=== PATIENT | male | born 2000 | race Caucasian/White ===

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

== ENCOUNTER 2021-09-13 11:51 | Emergency (ER) | payer BC ==
[2021-09-13 12:18] LABS: Urine Blood 3+ (Negative); Urine Glucose Negative (Negative); Urine Protein Trace (Negative); Urine Specific Gravity >=1.030 (1.005-1.030)
[2021-09-13 12:35] LABS: Absolute Lymphocytes (CBC) 3.2 K/uL (0.7-4.9); Basophils % 0.7 % (0-1.3); Hematocrit 42.6 % (39.6-49.0); Lymphocytes % 30.5 % (15.3-44.8); MPV 8.3 fL (7.6-11.3); RBC Red Blood Cell Count 4.69 M/uL (4.33-5.43)
[2021-09-13] MEDS ORDERED: NA CHLORIDE 0.9% 1,000 ML ONE (12:39)
[2021-09-13 12:51] LABS: Potassium 3.8 mmol/L (3.5-5.1)
--- NOTE | 2021-09-13 13:03 | RAD REPORT ---
EXAM DESCRIPTION: CT - Stone Protocol - 09/13/2021 12:39 pm CLINICAL HISTORY: Abdominal pain. Flank pain COMPARISON: None. TECHNIQUE: Computed axial tomography of the abdomen pelvis was obtained without oral or IV contrast. Lack of IV and oral contrast limits evaluation of solid organs, bowel,, appendix and vessels. Berumen l reformatted images were obtained and reviewed. All CT scans are performed using dose optimization technique as appropriate and may include automated exposure control or mA/KV adjustment according to patient size. FINDINGS: A 5 millimeter calcification right kidney. No hydronephrosis. Punctate left renal calculi. No hydronephrosis. A ureteral calculus is not visualized. No bladder calculus. The liver, spleen, pancreas and adrenals appear grossly normal There is no evidence of diverticulitis. IMPRESSION: 5 millimeter calcification right kidney. This probably lies within the right renal pelvi s. A calcified renal arterial aneurysm is probably less likely. Follow up renal ultrasound in 1 year recommended for re-evaluation. Tiny left renal calculi No hydronephrosis
[2021-09-13] MEDS ORDERED: KETOROLAC 30 MG/ML INJ ONE (13:43)
--- NOTE | 2021-09-13 13:51 | EDPHYS ---
Physician Documentation [facility] Name: Ash Goodman Age: 21 yrs Sex: Male : 2000 Arrival Date: 09/13/2021 Time: 11:55 Bed 20 Private MD: ED Physician Michele Quinn HPI: 09/13 13:38 This 21 yrs old Male presents to ER via Ambulatory with complaints of Back kb Pain. 13:38 The patient presents with pain that is acute, with no known mechanism of injury. The kb symptoms are located in the right low back and right mid back. Onset: The symptoms/episode began/occurred 4 day(s) ago. The pain does not radiate. Associated signs and symptoms: The patient has no apparent associated signs or symptoms. The problem was sustained from unknown cause. Modifying factors: The patient symptoms are alleviated by nothing, the patient symptoms are aggravated by any movement. Severity of symptoms: At their worst the symptoms were moderate, in the emergency department the symptoms are unchanged. The patient has not experienced similar symptoms in the past. The patient has not recently seen a physician. Historical: - Allergies: 12:00 No Known Allergies; tw2 - Home Meds: 12:00 None [Active]; tw2 - PMHx: 12:00 None; tw2 - PSHx: 12:00 None; tw2 - Immunization history:: Client reports having NOT received the Covid vaccine. - Social history:: Smoking status: Reported history of juuling and/or vaping. Smoking status: Reported history of juuling and/or vaping. Patient uses street drugs, CBD vaping everyday. ROS: 13:21 Constitutional: Negative for fever, chills, and weight loss. kb 13:21 Back: Positive for flank pain, on the right. 13:21 All other systems are negative. Exam: 13:22 Constitutional: This is a well developed, well nourished patient who is awake, alert, kb and in no acute distress. Head/Face: Normocephalic, atraumatic. ENT: Moist Mucous membranes Cardiovascular: Regular rate and rhythm with a normal S1 and S2. No gallops, murmurs, or rubs. No pulse deficits. Respiratory: Respirations even and unlabored. No increased work of breathing, no retractions or nasal flaring. Abdomen/GI: Soft, non-tender. No distention Skin: Warm, dry with normal turgor. Normal color. MS/ Extremity: Pulses equal, no cyanosis. Neurovascular intact. Full, normal range of motion. Neuro: Awake and alert, GCS 15, oriented to person, place, time, and situation. Moves all extremities. Normal gait. Psych: Awake, alert, with orientation to person, place and time. Behavior, mood, and affect are within normal limits. 13:22 Back: pain, that is mild, of the right low back and right mid back. Vital Signs: 11:57 BP 127 / 81; Pulse 94; Resp 17; Temp 97.6(TE); Pulse Ox 100% on R/A; Weight 65.77 kg tw2 (R); Height 5 ft. 10 in. (177.80 cm); Pain 9/10; 12:30 BP 126 / 74; Pulse 78; Resp 18; Temp 97.9; Pulse Ox 100% ; sl2 13:30 BP 124 / 78; Pulse 82; Resp 18; Temp 97.8; Pulse Ox 100% ; sl2 11:57 Body Mass Index 20.81 (65.77 kg, 177.80 cm) tw2 MDM: 12:33 Patient medically screened. kb 13:20 Data reviewed: vital signs, nurses notes. Data interpreted: Pulse oximetry: on room air kb is 100 %. Interpretation: normal. Counseling: I had a detailed discussion with the patient and/or guardian regarding: the historical points, exam findings, and any diagnostic results supporting the discharge/admit diagnosis, lab results, radiology results, the need for outpatient follow up, a family practitioner, to return to the emergency department if symptoms worsen or persist or if there are any questions or concerns that arise at home. 13:50 Response to treatment: the patient's symptoms have resolved after treatment. kb 09/13 12:15 Order name: CBC with Diff; Complete Time: 12:38 kb 09/13 12:15 Order name: Basic Metabolic Panel; Complete Time: 12:54 kb 09/13 12:15 Order name: CPK; Complete Time: 12:54 kb 09/13 12:16 Order name: CT Stone Protocol; Complete Time: 13:03 kb 09/13 12:17 Order name: Urine Dipstick-Ancillary; Complete Time: 12:22 EDMS 09/13 12:15 Order name: IV Start; Complete Time: 12:28 kb 09/13 12:15 Order name: Urine Dipstick-Ancillary (obtain specimen); Complete Time: 12:17 kb Administered Medications: 12:43 Drug: NS 0.9% 1000 ml Route: IV; Rate: 1000 ml; Site: right antecubital; sl2 13:48 Follow up: Response: No adverse reaction; IV Status: Completed infusion; IV Intake: sl2 1000ml 13:40 Drug: Ketorolac 15 mg Route: IVP; Site: right antecubital; sl2 13:55 Follow up: Response: No adverse reaction; Pain is decreased sl2 Disposition Summary: 09/13/21 13:51 Discharge Ordered Location: Home kb Condition: Stable kb Diagnosis - Right flank pain kb - Hematuria, unspecified kb Followup: kb - With: Emergency Department - When: As needed - Reason: Worsening of condition Followup: kb - With: Private Physician - When: 2 - 3 days - Reason: Recheck today's complaints, Continuance of care, Re-evaluation by your physician Discharge Instructions: - Discharge Summary Sheet kb - Hematuria, Adult kb - Flank Pain, Adult, [id number] kb Forms: - Medication Reconciliation Form kb - Thank You Letter kb - Antibiotic Education kb - Prescription Opioid Use kb - Work release form eb - Family Work Release eb Prescriptions: - Diclofenac Sodium 75 mg Oral tablet,delayed release (DR/EC) - take 1 tablet by ORAL route 2 times per day As needed; 30 tablet; Refills: 0, kb Product Selection Permitted Addendum: 09/15/2021 08:36 Co-signature as Attending Physician, Michele Quinn MD I agree with the assessment and s p3 plan of care. Signatures: Dispatcher [employer] [facility] Ludivina Norton, CANE SPLICER-C CANE SPLICER-Jelly Hatch, RN RN tw2 Michele Quinn MD MD sp3 Coby Howell RN RN sl2
--- NOTE | 2021-09-13 13:51 | ER ---
Nurse's Notes [facility] Name: Ash Goodman Age: 21 yrs Sex: Male : 2000 Arrival Date: 09/13/2021 Time: 11:55 Bed 20 Private MD: Diagnosis: Right flank pain;Hematuria, unspecified Presentation: 09/13 11:57 Chief complaint: Patient states: i am having this sharp my pain in my back on the lower tw2 RIGHT side. it started . i work at a [employer] and work. it feels like internal like its my kidneys. it switches back and form from sharp to throbbing. Coronavirus screen: At this time, the client does not indicate any symptoms associated with coronavirus-19. Ebola Screen: Patient denies travel to an Ebola-affected area in the 21 days before illness onset. Initial Sepsis Screen: Does the patient meet any 2 criteria? No. Patient's initial sepsis screen is negative. Does the patient have a suspected source of infection? No. Patient's initial sepsis screen is negative. Risk Assessment: Do you want to hurt yourself or someone else? Patient reports no desire to harm self or others. Onset of symptoms was September 13, 2021. 11:57 Method Of Arrival: Ambulatory tw2 11:57 Acuity: MANDA 3 tw2 Triage Assessment: 12:02 General: Appears in no apparent distress. slender, well groomed, Behavior is calm, tw2 cooperative, appropriate for age. Pain: Complains of pain in right mid back and right low back. : Reports pain in right flank(s). Musculoskeletal: Range of motion: intact in all extremities. Historical: - Allergies: 12:00 No Known Allergies; tw2 - Home Meds: 12:00 None [Active]; tw2 - PMHx: 12:00 None; tw2 - PSHx: 12:00 None; tw2 - Immunization history:: Client reports having NOT received the Covid vaccine. - Social history:: Smoking status: Reported history of juuling and/or vaping. Smoking status: Reported history of juuling and/or vaping. Patient uses street drugs, CBD vaping everyday. Screenin:02 Abuse screen: Denies threats or abuse. Nutritional screening: No deficits noted. tw2 Tuberculosis screening: No symptoms or risk factors identified. Fall Risk None identified. Assessment: 12:03 Reassessment: pt given urine specimen cup for sample collection at this time. pt tw2 instructed where to place specimen when finished and to return to the ER main lobby waiting area once he finishes with urine sample collection. 12:04 Neuro: Level of Consciousness is awake, alert, obeys commands, Oriented to person, tw2 place, time, situation. 13:55 Pain: Denies pain. sl2 Vital Signs: 11:57 BP 127 / 81; Pulse 94; Resp 17; Temp 97.6(TE); Pulse Ox 100% on R/A; Weight 65.77 kg tw2 (R); Height 5 ft. 10 in. (177.80 cm); Pain 9/10; 12:30 BP 126 / 74; Pulse 78; Resp 18; Temp 97.9; Pulse Ox 100% ; sl2 13:30 BP 124 / 78; Pulse 82; Resp 18; Temp 97.8; Pulse Ox 100% ; sl2 11:57 Body Mass Index 20.81 (65.77 kg, 177.80 cm) tw2 ED Course: 11:55 Patient arrived in ED. mr 12:00 Triage completed. tw2 12:02 Arm band placed on. tw2 12:02 Patient has correct armband on for positive identification. Placed in gown. Bed in low sl2 position. Call light in reach. Side rails up X2. Adult w/ patient. 12:15 Ludivina Norton FNP-C is PHCP. kb 12:15 Michele Quinn MD is Attending Physician. kb 12:25 Inserted saline lock: 20 gauge in right antecubital area, using aseptic technique. tw2 ,using aseptic technique. pt became diaphoretic and nauseous in triage room after IV. pt given cool rag for face and instructed to take mask off face and take slow deep breaths. pts significant other states he normally passes out after this kind of stuff with needles. Blood collected. 12:28 CBC with Diff Sent. tw2 12:28 CPK Sent. tw2 12:28 Basic Metabolic Panel Sent. tw2 12:38 Coby Howell, YVETTE is Primary Nurse. sl2 12:39 CT Stone Protocol In Process Unspecified. EDMS 13:57 No provider procedures requiring assistance completed. IV discontinued, intact, sl2 bleeding controlled, No redness/swelling at site. Pressure dressing applied. Administered Medications: 12:43 Drug: NS 0.9% 1000 ml Route: IV; Rate: 1000 ml; Site: right antecubital; sl2 13:48 Follow up: Response: No adverse reaction; IV Status: Completed infusion; IV Intake: sl2 1000ml 13:40 Drug: Ketorolac 15 mg Route: IVP; Site: right antecubital; sl2 13:55 Follow up: Response: No adverse reaction; Pain is decreased sl2 Intake: 13:48 IV: 1000ml; Total: 1000ml. sl2 Outcome: 13:51 Discharge ordered by . kb 13:57 Discharged to home ambulatory, with family. sl2 13:57 Condition: stable 13:57 Discharge instructions given to patient, family, Instructed on discharge instructions, follow up and referral plans. no drinking with medication, medication usage, Demonstrated understanding of instructions, follow-up care, medications, Prescriptions given X 1. 14:05 Patient left the ED. sl2 Signatures: Dispatcher [employer] EDKY Ludivina Norton, NAA DAWSON-Brisa Mills mr Jelly Sanders, RN RN tw2 Coby Howell, YVETTE RN sl2 Corrections: (The following items were deleted from the chart) 12:29 12:25 Inserted saline lock: 20 gauge in right antecubital area, using aseptic tw2 technique. Blood collected. tw2 12:34 12:25 Inserted saline lock: 20 gauge in right antecubital area, using aseptic tw2 technique. ,using aseptic technique. pt became diaphoretic and nauseous in triage room after IV. pt given cool rag for face and instructed to take mask off face and take slow deep breaths. Blood collected. tw2 13:57 13:30 BP 124 / 78; Pulse 18bpm; Resp 18bpm; Pulse Ox 100%; Temp 97.8F; sl2 sl2 13:57 12:30 BP 126 / 74; Pulse 78bpm; Resp 18bpm; Pulse Ox 100%; Temp 97.9F; sl2 sl2
[2021-09-13 14:45] VITALS: BP 124/78; TEMP 97.8; O2SAT 100
== END 2021-09-13 14:05 | disposition home or self-care (01) ==
LOC: ER 11:51
DX: R10.9 Unspecified abdominal pain (principal); R31.9 Hematuria, unspecified
CPT/HCPCS: 96361; 85025; 80048; 36415; 82550; 81003; 76377; 74176; 96374; 99284; J7030

== ENCOUNTER 2021-11-10 23:40 | Emergency (ER) | payer BC ==
--- NOTE | 2021-11-11 02:07 | EDPHYS ---
Physician Documentation [facility] Name: Ash Goodman Age: 21 yrs Sex: Male : 2000 Arrival Date: 11/10/2021 Time: 23:45 Bed 9 Private MD: ED Physician Rico Scott HPI: 11/11 01:58 This 21 yrs old Male presents to ER via Ambulatory with complaints of Back Pain. [facility] 01:58 The patient presents with pain that is acute. Onset: The symptoms/episode jmm began/occurred 1 month(s) ago. The pain radiates to the buttocks. Associated signs and symptoms: Pertinent negatives: fever, incontinence, nausea, numbness, tingling, urinary retention, vomiting, weakness. Modifying factors: The patient symptoms are alleviated by nothing, the patient symptoms are aggravated by any movement. This is a 21 year old male with no known chronic medical conditions that presents to the ED with complaints of progressively worsening back pain after bending 1 month ago. Patient states today the pain intensified with radiation into the right buttock. Denies bowel or bladder issues. . Historical: - Allergies: 00:59 No Known Allergies; tw5 - Home Meds: 00:59 None [Active]; tw5 - PMHx: 00:59 Kidney stone; tw - PSHx: 00:59 None; tw5 - Immunization history:: Flu vaccine is not up to date. - Social history:: Smoking status: Reported history of juuling and/or vaping. ROS: 01:58 Constitutional: Negative for fever, chills, and weight loss, Cardiovascular: Negative jm for chest pain, palpitations, and edema, Respiratory: Negative for shortness of breath, cough, wheezing, and pleuritic chest pain. 01:58 Back: Positive for pain with movement. 01:58 All other systems are negative. Exam: 01:58 Constitutional: This is a well developed, well nourished patient who is awake, alert, jmm and in no acute distress. Head/Face: atraumatic. Eyes: EOMI, no conjunctival erythema appreciated ENT: Moist Mucus Membranes Neck: Trachea midline, Supple Chest/axilla: Normal chest wall appearance and motion. Cardiovascular: Regular rate and rhythm. No edema appreciated Respiratory: Normal respirations, no respiratory distress appreciated Abdomen/GI: Non distended, soft 01:58 Back: pain, that is mild, of the right low back. 01:58 Musculoskeletal/extremity: ROM: intact in all extremities. 01:58 Skin: Appearance: Color: normal in color. 01:58 Neuro: Orientation: is normal, Mentation: is normal, Memory: is normal. 01:58 Neuro: sensation intact, extensor hallucis longus intact. 01:58 Psych: Behavior/mood is pleasant, cooperative. Vital Signs: 00:57 BP 141 / 95; Pulse 61; Resp 20; Temp 97.8(TE); Pulse Ox 100% on R/A; Weight 72.57 kg; tw5 Height 5 ft. 10 in. (177.80 cm); Pain 9/10; 02:00 BP 125 / 71; Pulse 87; Resp 18; Pulse Ox 97% ; mk 03:00 BP 124 / 81; Pulse 87; Resp 18; Temp 98.5; Pulse Ox 98% on R/A; mk 00:57 Body Mass Index 22.96 (72.57 kg, 177.80 cm) tw5 [place] Coma Score: 02:00 Eye Response: spontaneous(4). Verbal Response: oriented(5). Motor Response: obeys mk commands(6). Total: 15. 03:05 Eye Response: spontaneous(4). Verbal Response: oriented(5). Motor Response: obeys mk commands(6). Total: 15. MDM: 01:57 Patient medically screened. [facility] 01:58 Data reviewed: vital signs, nurses notes. Counseling: I had a detailed discussion with [facility] the patient and/or guardian regarding: the historical points, exam findings, and any diagnostic results supporting the discharge/admit diagnosis, the need for outpatient follow up, to return to the emergency department if symptoms worsen or persist or if there are any questions or concerns that arise at home. ED course: Patient withPatient advised of the need to follow-up with spine surgery for further evaluation. Was given strict return precautions. I do not currently suspect cord compression or cauda equina. 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 Patient most likely has sciatica.. Administered Medications: 00:40 Drug: Ketorolac 30 mg Route: IM; Site: right deltoid; 00:40 Drug: Decadron (dexamethasone) 10 mg Route: IM; Site: right gluteus; mk Disposition: 05:21 Co-signature as Attending Physician, Rico Scott MD. mh7 Disposition Summary: 11/11/21 02:06 Discharge Ordered Location: Home [facility] Condition: Stable jmm Diagnosis - Sciatica, right side jmm Followup: [facility] - With: Private Physician - When: As needed - Reason: Recheck today's complaints, Continuance of care, Re-evaluation by your physician Discharge Instructions: - Discharge Summary Sheet [facility] - Sciatica [facility] Forms: - Medication Reconciliation Form [facility] - Thank You Letter [facility] - Antibiotic Education [facility] - Prescription Opioid Use [facility] - Work release form cs9 Prescriptions: - Ibuprofen 800 mg Oral Tablet - take 1 tablet by ORAL route every 12 hours As needed take with food; 20 tablet; [facility] Refills: 0, Product Selection Permitted - Zanaflex 4 mg Oral Tablet - take 1 tablet by ORAL route every 8 hours As needed; 20 tablet; Refills: 0, [facility] Product Selection Permitted Signatures: Dispatcher [employer] EDClive Samaniego PA PA jmm Holmes, Maurice, MD MD mh7 Yi Costa 5 Eleanor Stephenson RN RN mk Corrections: (The following items were deleted from the chart) 01:00 00:59 PMHx: None; tw5
--- NOTE | 2021-11-11 02:07 | ER ---
Nurse's Notes [facility] Name: Ash Goodman Age: 21 yrs Sex: Male : 2000 Arrival Date: 11/10/2021 Time: 23:45 Bed 9 Private MD: Diagnosis: Sciatica, right side Presentation: 11/11 00:57 Chief complaint: Patient states: "It started a month ago, I thought it was a pulled tw5 muscle, and it has only gotten worse. I cannot bend down. I got out of bed today and I went to stand up and I fell right to ground. I just need to figure out what is wrong with me.". Coronavirus screen: Vaccine status: Patient reports being unvaccinated. Ebola Screen: Patient negative for fever greater than or equal to 101.5 degrees Fahrenheit, and additional compatible Ebola Virus Disease symptoms Patient denies exposure to infectious person. Patient denies travel to an Ebola-affected area in the 21 days before illness onset. Initial Sepsis Screen: Does the patient meet any 2 criteria? No. Patient's initial sepsis screen is negative. Does the patient have a suspected source of infection? No. Patient's initial sepsis screen is negative. Risk Assessment: Do you want to hurt yourself or someone else? Patient reports no desire to harm self or others. Onset of symptoms is unknown. 00:57 Method Of Arrival: Ambulatory tw5 00:57 Acuity: MANDA 4 tw5 Triage Assessment: 00:59 General: Appears in no apparent distress. Behavior is calm, cooperative, appropriate tw5 for age. Pain: Pain currently is 9 out of 10 on a pain scale. Historical: - Allergies: 00:59 No Known Allergies; tw5 - Home Meds: 00:59 None [Active]; tw5 - PMHx: 00:59 Kidney stone; tw5 - PSHx: 00:59 None; tw5 - Immunization history:: Flu vaccine is not up to date. - Social history:: Smoking status: Reported history of juuling and/or vaping. Screenin:00 Abuse screen: Denies threats or abuse. Denies injuries from another. Nutritional tw5 screening: No deficits noted. Tuberculosis screening: No symptoms or risk factors identified. Fall Risk Fall in past 12 months (25 points). Assessment: 02:05 General: Appears in no apparent distress. comfortable. Pain: Complains of pain in mk pelvis 'beginning to radiate to the L leg' Pain currently is 8 out of 10 on a pain scale. Quality of pain is described as sharp, shooting, Pain began gradually. Neuro: Level of Consciousness is awake, alert, obeys commands, Oriented to person, place, time, situation, Shredder Operator are equal bilaterally Gait is steady, Speech is normal, Facial symmetry appears normal. Cardiovascular: Heart tones S1 S2 Capillary refill < 3 seconds fingers toes Pulses are 2+ in right radial artery, right dorsalis pedis artery, left radial artery and left dorsalis pedis artery Rhythm is regular. Respiratory: Airway is patent Trachea midline Respiratory effort is even, unlabored, Respiratory pattern is regular, symmetrical, Breath sounds are clear bilaterally. GI: Bowel sounds present X 4 quads. : No signs and/or symptoms were reported regarding the genitourinary system. Derm: Skin is intact, is healthy with good turgor, Skin is dry, Skin temperature is warm. Musculoskeletal: Circulation, motion, and sensation intact. Capillary refill < 3 seconds, Range of motion: intact in all extremities. 03:12 Reassessment: No changes from previously documented assessment. Patient and/or family mk updated on plan of care and expected duration. Pain level reassessed. Patient is alert, oriented x 3, equal unlabored respirations, skin warm/dry/pink. Pain: Complains of pain in pelvis Pain radiates to left leg Pain currently is 7 out of 10 on a pain scale. Quality of pain is described as sharp, shooting. Vital Signs: 00:57 BP 141 / 95; Pulse 61; Resp 20; Temp 97.8(TE); Pulse Ox 100% on R/A; Weight 72.57 kg; tw5 Height 5 ft. 10 in. (177.80 cm); Pain 9/10; 02:00 BP 125 / 71; Pulse 87; Resp 18; Pulse Ox 97% ; mk 03:00 BP 124 / 81; Pulse 87; Resp 18; Temp 98.5; Pulse Ox 98% on R/A; mk 00:57 Body Mass Index 22.96 (72.57 kg, 177.80 cm) tw5 [place] Coma Score: 02:00 Eye Response: spontaneous(4). Verbal Response: oriented(5). Motor Response: obeys commands(6). Total: 15. 03:05 Eye Response: spontaneous(4). Verbal Response: oriented(5). Motor Response: obeys commands(6). Total: 15. ED Course: 11/10 23:45 Patient arrived in ED. ag3 11/11 00:59 Triage completed. tw5 00:59 Arm band placed on left wrist. tw5 01:41 Clive Myers PA is PHCP. [facility] 01:41 Rico Scott MD is Attending Physician. [facility] 02:00 Patient has correct armband on for positive identification. Allergy band placed. Bed in mk low position. Call light in reach. Side rails up X 1. 02:16 Eleanor Stephenson, YVETTE is Primary Nurse. 03:22 No provider procedures requiring assistance completed. Patient did not have IV access mk during this emergency room visit. Administered Medications: 00:40 Drug: Ketorolac 30 mg Route: IM; Site: right deltoid; 00:40 Drug: Decadron (dexamethasone) 10 mg Route: IM; Site: right gluteus; Outcome: 02:06 Discharge ordered by . jenni 03:22 Discharged to home 03:22 Condition: good 03:22 Discharge instructions given to patient, significant other. 03:23 Patient left the ED. Signatures: Clive Myers PA PA jmm Gomez, Alice ag3 Yi Costa Eleanor Stephenson RN RN mk Corrections: (The following items were deleted from the chart) 01:00 00:59 PMHx: None; tw tw 02:58 02:40 Ketorolac 30 mg IM in right gluteus [facility] : 02:00 BP 124 / 81; Pulse 87bpm; Resp 18bpm; Pulse Ox 98% RA; Temp 98.5F; [facility] : 02:00 GCS: 15, [facility]
[2021-11-11] MEDS ORDERED: dexAMETHasone 10 MG/ML VIAL ONE (02:36)
[2021-11-11] MEDS ORDERED: KETOROLAC 30 MG/ML INJ ONE (02:36)
[2021-11-11 03:43] VITALS: BP 124/81; TEMP 98.5; O2SAT 98
== END 2021-11-11 03:23 | disposition home or self-care (01) ==
LOC: ER 23:40
DX: M54.31 Sciatica, right side (principal)
CPT/HCPCS: 96372; 99283; J1100

== ENCOUNTER 2022-04-22 16:48 | Emergency (ER) | payer BC ==
[2022-04-22 17:12] LABS: Urine Blood Negative (Negative); Urine Glucose Negative (Negative); Urine Protein Negative (Negative); Urine Specific Gravity >=1.030 (1.005-1.030); Urine pH 5.5 (5.0-7.0)
[2022-04-22 17:41] LABS: Urine Bacteria <20 /HPF (NONE SEEN); Urine RBC <5 /HPF (NONE SEEN)
--- NOTE | 2022-04-22 18:09 | ER ---
Nurse's Notes [facility] Name: Ash Goodman Age: 22 yrs Sex: Male : 2000 Arrival Date: 04/22/2022 Time: 16:49 Bed Waiting Private MD: Amari Lagos T Diagnosis: Urinary frequency Presentation: 04/22 16:55 Chief complaint: Patient states: "I am having some bladder discomfort and I feel like I aa5 have to pee all the time but I'm not urinating like I should". Reports hx of kidney stones. Coronavirus screen: At this time, the client does not indicate any symptoms associated with coronavirus-19. Ebola Screen: No symptoms or risks identified at this time. Initial Sepsis Screen: Does the patient meet any 2 criteria? No. Patient's initial sepsis screen is negative. Does the patient have a suspected source of infection? No. Patient's initial sepsis screen is negative. Risk Assessment: Do you want to hurt yourself or someone else? Patient reports no desire to harm self or others. Onset of symptoms was April 2022. 16:55 Acuity: MANDA 3 aa5 16:55 Method Of Arrival: Ambulatory aa5 Historical: - Allergies: 16:57 No Known Allergies; aa5 - PMHx: 16:57 Kidney stone; aa5 - Immunization history:: Adult Immunizations unknown. - Social history:: Smoking status: Reported history of juuling and/or vaping. Assessment: 18:24 Reassessment: Patient is alert, oriented x 3, equal unlabored respirations, skin aa5 warm/dry/pink. Vital Signs: 16:55 BP 158 / 97; Pulse 98; Resp 18 S; Temp 98.3(O); Pulse Ox 100% on R/A; Weight 68.04 kg aa5 (R); Height 5 ft. 10 in. (177.80 cm) (R); 16:55 Body Mass Index 21.52 (68.04 kg, 177.80 cm) aa5 ED Course: 16:49 Patient arrived in ED. as 16:49 Amari Lagos MD is Private Physician. as 16:50 Ludivina Norton [facility]-C [facility]. kb 16:50 Juve Davis DO is Attending Physician. kb 16:55 Arm band placed on. aa5 16:57 Triage completed. aa5 18:25 No provider procedures requiring assistance completed. Patient did not have IV access aa5 during this emergency room visit. Administered Medications: No medications were administered Outcome: 18:08 Discharge ordered by . estefany 18:24 Discharged to home ambulatory, with significant other. aa5 18:24 Condition: stable 18:24 Discharge instructions given to patient, Instructed on discharge instructions, follow up and referral plans. Demonstrated understanding of instructions, follow-up care. 18:25 Patient left the ED. aa5 Signatures: Ludivina Norton, METAL ANNEALER-C METAL ANNEALER-Julianna Tyler as Mulu Howe, RN RN aa5 Corrections: (The following items were deleted from the chart) 16:59 16:55 BP 158 / 97; Pulse 98bpm; Resp 18bpm; Spontaneous; Pulse Ox 100% RA; aa5 aa5
--- NOTE | 2022-04-22 18:09 | EDPHYS ---
Physician Documentation [facility] Name: Ash Goodman Age: 22 yrs Sex: Male : 2000 Arrival Date: 04/22/2022 Time: 16:49 Bed Waiting Private MD: Amari Lagos T ED Physician Juve Davis HPI: 04/22 18:04 This 22 yrs old Male presents to ER via Ambulatory with complaints of Pelvic Pain. kb 18:05 The patient has not recently seen a physician. kb 18:05 The patient presents with urinary symptoms, urinary frequency, suprapubic discomfort. kb 18:07 Onset: The symptoms/episode began/occurred last week. Modifying factors: The symptoms kb are alleviated by nothing, the symptoms are aggravated by nothing. Associated signs and symptoms: The patient has no apparent associated signs or symptoms. Severity of symptoms: At their worst the symptoms were mild, moderate, in the emergency department the symptoms are unchanged. The patient has not experienced similar symptoms in the past. Historical: - Allergies: 16:57 No Known Allergies; aa5 - PMHx: 16:57 Kidney stone; aa5 - Immunization history:: Adult Immunizations unknown. - Social history:: Smoking status: Reported history of juuling and/or vaping. ROS: 18:03 Constitutional: Negative for fever, chills, and weight loss. kb 18:03 Abdomen/GI: Positive for of the suprapubic area, "discomfort, not pain". 18:03 : Positive for urinary frequency. 18:03 All other systems are negative. Exam: 18:03 Constitutional: This is a well developed, well nourished patient who is awake, alert, kb and in no acute distress. Head/Face: Normocephalic, atraumatic. ENT: Moist Mucous membranes Respiratory: Respirations even and unlabored. No increased work of breathing. Talking in full sentences Abdomen/GI: Soft, non-tender. No distention Back: No spinal tenderness. No costovertebral tenderness. Full range of motion. Skin: Warm, dry with normal turgor. Normal color. MS/ Extremity: Pulses equal, no cyanosis. Neurovascular intact. Full, normal range of motion. Neuro: Awake and alert, GCS 15, oriented to person, place, time, and situation. Moves all extremities. Normal gait. Psych: Awake, alert, with orientation to person, place and time. Behavior, mood, and affect are within normal limits. Vital Signs: 16:55 BP 158 / 97; Pulse 98; Resp 18 S; Temp 98.3(O); Pulse Ox 100% on R/A; Weight 68.04 kg aa5 (R); Height 5 ft. 10 in. (177.80 cm) (R); 16:55 Body Mass Index 21.52 (68.04 kg, 177.80 cm) aa5 MDM: 16:53 Patient medically screened. kb 18:04 Data reviewed: vital signs, nurses notes. Data interpreted: Pulse oximetry: on room air kb is 100 %. Interpretation: normal. Counseling: I had a detailed discussion with the patient and/or guardian regarding: the historical points, exam findings, and any diagnostic results supporting the discharge/admit diagnosis, lab results, the need for outpatient follow up, a family practitioner, to return to the emergency department if symptoms worsen or persist or if there are any questions or concerns that arise at home. 04/22 16:59 Order name: Urine Microscopic Only; Complete Time: 17:55 kb 04/22 17:12 Order name: Urine Dipstick-Ancillary; Complete Time: 17:17 EDNH 04/22 16:59 Order name: Urine Dipstick-Ancillary (obtain specimen); Complete Time: 17:13 kb 04/22 17:44 Order name: Urine Culture EDNH Administered Medications: No medications were administered Disposition: 19:55 Co-signature as Attending Physician, Juve WARD was immediately available on-site ms3 in the Emergency Department for consultation in the care of the patient.. Disposition Summary: 04/22/22 18:08 Discharge Ordered Location: Home kb Condition: Stable kb Diagnosis - Urinary frequency kb Followup: kb - With: Emergency Department - When: As needed - Reason: Worsening of condition Followup: kb - With: Private Physician - When: 2 - 3 days - Reason: Recheck today's complaints, Continuance of care, Re-evaluation by your physician Discharge Instructions: - Discharge Summary Sheet kb - Urinary Frequency, Adult kb Forms: - Medication Reconciliation Form kb - Thank You Letter kb - Antibiotic Education kb - Prescription Opioid Use kb Signatures: Dispatcher [employer] EDMS Ludivina Norton FNP-C FNP-Mulu Horner, RN RN aa5 Juve Davis DO DO ms3 Corrections: (The following items were deleted from the chart) 18:05 18:03 : Positive for burning with urination, kb kb
[2022-04-22 18:41] VITALS: BP 158/97; TEMP 98.3; O2SAT 100
== END 2022-04-22 18:25 | disposition home or self-care (01) ==
LOC: ER 16:48
DX: R35.0 Frequency of micturition (principal); R10.2 Pelvic and perineal pain; Z87.442 Personal history of urinary calculi
CPT/HCPCS: 81003; 81015; 87086; 87088; 99281

== ENCOUNTER 2022-05-10 10:24 | Emergency (ER) | payer BC ==
--- NOTE | 2022-05-10 12:18 | ER ---
Nurse's Notes [facility] Name: Ash Goodman Age: 22 yrs Sex: Male : 2000 Arrival Date: 05/10/2022 Time: 10:24 Bed 9 Private MD: Diagnosis: Coronavirus infection, unspecified Presentation: 05/10 10:35 Chief complaint: Patient states: pt reports sore throat x 1 week. Coronavirus screen: watts Vaccine status: Patient reports being unvaccinated. Ebola Screen: Patient denies travel to an Ebola-affected area in the 21 days before illness onset. Initial Sepsis Screen: Does the patient meet any 2 criteria? No. Patient's initial sepsis screen is negative. Does the patient have a suspected source of infection? No. Patient's initial sepsis screen is negative. Risk Assessment: Do you want to hurt yourself or someone else? Patient reports no desire to harm self or others. Onset of symptoms was May 02, 2022. 10:35 Method Of Arrival: Ambulatory watts 10:35 Acuity: MANDA 4 watts Triage Assessment: 10:36 General: Appears in no apparent distress. Behavior is calm, cooperative. Pain: watts Complains of pain in throat. Historical: - Allergies: 10:36 No Known Allergies; watts - Home Meds: 10:36 None [Active]; watts - PMHx: 10:36 Kidney stone; watts - PSHx: 10:36 None; watts - Immunization history:: Adult Immunizations up to date. - Social history:: Smoking status: Reported history of juuling and/or vaping. Screenin:00 Nutritional screening: No deficits noted. Tuberculosis screening: No symptoms or risk iw factors identified. 12:35 Abuse screen: Denies threats or abuse. Denies injuries from another. Fall Risk None iw identified. Assessment: 11:20 General: Appears in no apparent distress. Behavior is calm, cooperative. Pain:. Neuro: iw Level of Consciousness is awake, alert, obeys commands, Oriented to person, place, time, situation, Moves all extremities. Full function. Respiratory: Airway is patent Respiratory effort is even, unlabored, Breath sounds are clear bilaterally. EENT: Throat is reddened bilaterally. Vital Signs: 10:35 BP 138 / 87; Pulse 86; Resp 17; Temp 98.5(O); Pulse Ox 99% ; Weight 68.04 kg; Height 5 watts ft. 10 in. (177.80 cm); 10:35 Body Mass Index 21.52 (68.04 kg, 177.80 cm) watts ED Course: 10:24 Patient arrived in ED. as 10:31 Clive Myers PA is PHCP. jenni 10:31 Franklin Cedeño MD is Attending Physician. m 10:36 Triage completed. watts 10:36 Arm band placed on. watts 10:44 Kathryn Jeffery, RN is Primary Nurse. iw 10:49 COVID swab sent to lab. Flu and/or RSV swab sent to lab. Strep swab sent to lab. jw7 10:50 Influenza Screen (a \\T\\ B) Sent. jw7 10:50 Strep Sent. jw7 10:50 SARS-COV-2 RT PCR (Document "Date of Onset" if Symptomatic) Sent. jw7 11:20 Patient has correct armband on for positive identification. iw 12:37 No provider procedures requiring assistance completed. Patient did not have IV access iw during this emergency room visit. Administered Medications: No medications were administered Medication: 11:20 VIS not applicable for this client. iw Outcome: 12:17 Discharge ordered by . [facility] 12:37 Discharged to home ambulatory, with family. iw 12:37 Condition: good 12:37 Discharge instructions given to patient, Instructed on discharge instructions, follow up and referral plans. Demonstrated understanding of instructions, follow-up care. 12:38 Patient left the ED. iw Signatures: Clive Myers PA PA jmm Martinez, Amelia as Kathryn Jeffery RN RN Mendy-StagerNeha RN RN ha Waits, Jodi jw7
--- NOTE | 2022-05-10 12:18 | EDPHYS ---
Physician Documentation [facility] Name: Ash Goodman Age: 22 yrs Sex: Male : 2000 Arrival Date: 05/10/2022 Time: 10:24 Bed 9 Private MD: ED Physician Franklin Cedeño HPI: 05/10 10:37 This 22 yrs old Male presents to ER via Ambulatory with complaints of Sore Throat. jmm 10:37 The patient presents with sore throat. Onset: The symptoms/episode began/occurred jmm gradually, 8 day(s) ago. Modifying factors: The symptoms are alleviated by nothing, the symptoms are aggravated by nothing. Associated signs and symptoms: Pertinent positives: cough, fever, Pertinent negatives. This is a 22 year old male with a history of kidney stones that presents to the ED with complaints of sore throat and subjective fever beginning approx 8 days ago. Also complains of mild cough, denies shortness of breath, abdominal pain, diarrhea, or vomiting. . Historical: - Allergies: 10:36 No Known Allergies; watts - Home Meds: 10:36 None [Active]; watts - PMHx: 10:36 Kidney stone; watts - PSHx: 10:36 None; watts - Immunization history:: Adult Immunizations up to date. - Social history:: Smoking status: Reported history of juuling and/or vaping. ROS: 10:37 Constitutional: Positive for body aches, fever. jmm 10:37 ENT: Positive for drainage from ear(s), sore throat. 10:37 Respiratory: Positive for cough. 10:37 All other systems are negative. Exam: 10:37 Constitutional: This is a well developed, well nourished patient who is awake, alert, jmm and in no acute distress. Head/Face: atraumatic. Eyes: EOMI, no conjunctival erythema appreciated 10:37 Neck: Trachea midline, Supple Chest/axilla: Normal chest wall appearance and motion. Cardiovascular: Regular rate and rhythm. No edema appreciated Respiratory: Normal respirations, no respiratory distress appreciated Abdomen/GI: Non distended Back: Normal ROM Skin: General appearance color normal MS/ Extremity: Moves all extremities, no obvious deformities appreciated, no edema noted to the lower extremities Neuro: Awake and alert Psych: Behavior is normal, Mood is normal, Patient is cooperative and pleasant 10:37 ENT: Posterior pharynx: erythema, that is mild. Vital Signs: 10:35 BP 138 / 87; Pulse 86; Resp 17; Temp 98.5(O); Pulse Ox 99% ; Weight 68.04 kg; Height 5 watts ft. 10 in. (177.80 cm); 10:35 Body Mass Index 21.52 (68.04 kg, 177.80 cm) watts MDM: 10:46 Patient medically screened. [facility] 12:16 Data reviewed: vital signs, nurses notes. [facility] 12:16 Counseling: I had a detailed discussion with the patient and/or guardian regarding: the [facility] historical points, exam findings, and any diagnostic results supporting the discharge/admit diagnosis, the need for outpatient follow up, to return to the emergency department if symptoms worsen or persist or if there are any questions or concerns that arise at home. ED course: Patient is alert and non toxic in appearance in the ED. No signs of resp distress. Patient advised to follow up with pcp and otherwise given strict return precautions. patient understood and agrees with the plan of care. . 05/10 10:37 Order name: SARS-COV-2 RT PCR (Document "Date of Onset" if Symptomatic); Complete Time: [facility] 12:08 05/10 10:37 Order name: Strep; Complete Time: 12:08 [facility] 05/10 10:37 Order name: Influenza Screen (a \\T\\ B); Complete Time: 12:08 [facility] 05/10 11:15 Order name: Throat Culture EDMS Administered Medications: No medications were administered Disposition: 12:42 Co-signature as Attending Physician, Kathryn Jeffery RN I agree with the assessment and kdr plan of care. Disposition Summary: 05/10/22 12:17 Discharge Ordered Location: Home [facility] Condition: Stable [facility] Diagnosis - Coronavirus infection, unspecified [facility] Followup: [facility] - With: Private Physician - When: 2 - 3 days - Reason: Recheck today's complaints, Continuance of care, Re-evaluation by your physician Discharge Instructions: - Discharge Summary Sheet [facility] - COVID-19 [facility] Forms: - Medication Reconciliation Form [facility] - Thank You Letter [facility] - Antibiotic Education jm - Prescription Opioid Use [facility] - Work release form iw Signatures: Dispatcher [employer] EDMS Franklin Cedeño MD MD kdr Mickail Clive, PA PA jmm Neha Wang, YVETTE RN watts
[2022-05-10] MEDS ORDERED: dexAMETHasone 10 MG/ML VIAL ONE (12:36)
[2022-05-10 13:40] VITALS: BP 138/87; TEMP 98.5; O2SAT 99
== END 2022-05-10 12:38 | disposition home or self-care (01) ==
LOC: ER 10:24
DX: J02.9 Acute pharyngitis, unspecified (principal); U07.1 COVID-19
CPT/HCPCS: 87070; 87081; 87804 ×2; U0003; J1100; 99283

== ENCOUNTER 2024-02-22 07:35 | Emergency (ER) | payer BC ==
[2024-02-22 08:18] LABS: Specific Gravity 1.022 (1.005-1.030); Urine Bilirubin NEGATIVE (Negative); Urine Blood 3+ (Negative); Urine Clarity Turbid (Clear); Urine Color Light-Yellow (Yellow); Urine Glucose NEGATIVE (Negative); Urine Ketones NEGATIVE (Negative); Urine Micro Reflex YN NO BILL NO MICROSCOPIC; Urine Nitrite NEGATIVE (Negative); Urine Protein 1+ (Negative); Urine Urobilinogen Normal (Normal); Urine pH 6.5 (5.0-7.0)
[2024-02-22 08:20] LABS: Absolute Eosinophils 0.1 K/uL (0-0.5); Absolute Monocytes 0.5 K/uL (0.1-1.3); Absolute Neutrophil 3.6 K/uL (1.8-8.0); Basophils % 0.7 % (0-1.3); Eosinophils % 0.9 % (0-4.4); Hemoglobin 14.7 g/dL (13.6-17.9); Lymphocytes % 32.4 % (15.3-44.8); MCH 32.8 pg (27.0-35.0); MCV 93.9 fL (80-100); Monocytes % 8.5 % (3.3-12.3); Neutrophils % 57.5 % (41.7-73.7); Nucleated Red Blood Cells % 0.2 % (0-0); Platelets 298 thou/uL (152-406); RBC Red Blood Cell Count 4.47 M/uL (4.33-5.43); Red Cell Distribution Width 12.5 % (12.1-15.2)
--- NOTE | 2024-02-22 08:28 | RAD REPORT ---
EXAM DESCRIPTION: CT - Abdomen Pelvis Wo Contrast - 02/22/2024 8:00 am CLINICAL HISTORY: ABD PAIN COMPARISON: Stone Protocol dated 09/13/2021 TECHNIQUE: Thin cut axial CT imaging of the abdomen and pelvis was performed without IV contrast. Mu ltiplanar reformats were generated and reviewed. All CT scans are performed using dose optimization technique as appropriate and may include automated exposure control or mA/KV adjustment according to patient size. FINDINGS: No suspicious findings in the lung bases. The liver, spleen, adrenal glands, and pancreas show no suspicious findings. Gallbladder and biliary tree are also without suspicious finding. Symmetric renal contour, without suspicious parenchymal findings within limits of noncontrast techniq ue. No evidence of left hydroureteronephrosis. 1-2 mm left lower renal pole calculus, and right ovoid 13 mm renal pelvis calculus. Mild proximal right hydroureter with mild periureteric fat stranding, w ith no other calculi noted distally. Findings are nonspecific and could relate to a recently passed s tone. . No dilated bowel loops or bowel wall thickening. No free air, free fluid or inflammatory stranding. N o hernia, mass or bulky lymphadenopathy. The urinary bladder is decompressed limiting evaluation. No suspicious bony findings. IMPRESSION: Right renal pelvis 13 mm and left renal lower pole 1-2 mm nonobstructing calculi. Mild proximal right hydroureter with mild periureteric fat stranding. Findings are nonspecific and ma y relate to a recently passed stone.
[2024-02-22 08:31] LABS: Anion Gap 7.7 mEq/L (5.0-15.0); Potassium 3.7 mEq/L (3.5-5.1)
--- NOTE | 2024-02-22 08:38 | ER ---
Nurse's Notes [facility] Name: Ash Goodman Age: 23 yrs Sex: Male : 2000 Arrival Date: 02/22/2024 Time: 07:35 Bed 5 Private MD: Diagnosis: Calculus of kidney Presentation: 02/21 07:46 Chief complaint: Patient states: he is having right lower abdominal pain for a few ap3 months, and had "orange urine" this morning and decided to get evaluated today due to his PCP not being able to get him in for a while. Coronavirus screen: At this time, the client does not indicate any symptoms associated with coronavirus-19. Ebola Screen: No symptoms or risks identified at this time. Initial Sepsis Screen: Does the patient meet any 2 criteria? HR > 90 bpm. Does the patient have a suspected source of infection? No. Patient's initial sepsis screen is negative. Risk Assessment: Do you want to hurt yourself or someone else? Patient reports no desire to harm self or others. Onset of symptoms is unknown. 07:46 Method Of Arrival: Ambulatory ap3 07:46 Acuity: MANDA 3 ap3 Triage Assessment: 07:50 General: Appears in no apparent distress. Behavior is calm, cooperative, appropriate ap3 for age. Pain: Complains of pain in right lower quadrant Pain began years ago. Neuro: Level of Consciousness is awake, alert, obeys commands, Oriented to person, place, time, situation. Cardiovascular: Patient's skin is warm and dry. Respiratory: Airway is patent Respiratory effort is even, unlabored. GI: No signs and/or symptoms were reported involving the gastrointestinal system. Historical: - Allergies: 07:49 No Known Allergies; ap3 - Home Meds: 07:49 None [Active]; ap3 - PMHx: 07:49 Kidney stone; ap3 - Immunization history:: Adult Immunizations up to date. - Infectious Disease History:: Denies. - Social history:: Smoking status: Reported history of juuling and/or vaping. Screenin:50 [facility] ED Fall Risk Assessment (Adult) History of falling in the last 3 months, ap3 including since admission No falls in past 3 months (0 pts) Confusion or Disorientation No (0 pts) Intoxicated or Sedated No (0 pts) Impaired Gait No (0 pts) Mobility Assist Device Used No (0 pt) Altered Elimination No (0 pt) Score/Fall Risk Level 0 - 2 = Low Risk Oriented to surroundings, Maintained a safe environment, Educated pt \\T\\ family on fall prevention, incl call for assistance when getting out of bed, Assessed \\T\\ reinforced patient's understanding of fall precautions, Provided non-skid footwear, Hourly rounding (assess needs \\T\\ fall precautionary measures) done, Used ambulatory aids as needed (educated on \\T\\ assisted with), Used gait belt as appropriate. Abuse screen: Denies threats or abuse. Nutritional screening: No deficits noted. Tuberculosis screening: No symptoms or risk factors identified. Assessment: 08:20 General: Appears in no apparent distress. comfortable, Behavior is calm, cooperative, ko1 appropriate for age. Pain: Complains of pain in right lower quadrant. Neuro: No deficits noted. Cardiovascular: No deficits noted. Respiratory: No deficits noted. GI: Bowel sounds present X 4 quads. Abd is soft and non tender X 4 quads. : Reports pain in right lower quadrant(s) in lower back. EENT: No deficits noted. Derm: No deficits noted. Musculoskeletal: No deficits noted. Vital Signs: 07:46 BP 177 / 95; Pulse 92; Resp 17; Temp 98.4; Weight 73.48 kg; Height 5 ft. 9 in. ; ap3 08:33 BP 162 / 91; Pulse 88; Resp 15; Pulse Ox 99% on R/A; ko1 07:46 Body Mass Index 23.92 (73.48 kg, 175.26 cm) ap3 ED Course: 07:37 Patient arrived in ED. im 07:49 Triage completed. ap3 07:50 Jose Juan Craig MD is Attending Physician. ec2 07:51 Arm band placed on right wrist. ap3 07:51 Patient has correct armband on for positive identification. Bed in low position. Call ap3 light in reach. Side rails up X 1. 07:58 CT Abd/Pelvis - Without Contrast In Process Unspecified. EDMS 08:02 UAM Sent. ko1 08:03 Trista Reynoso, YVETTE is Primary Nurse. ko1 08:20 Pulse ox on. NIBP on. Door closed. Noise minimized. Lights dimmed. Warm blanket given. ko1 08:20 PO fluids given. ko1 08:20 No provider procedures requiring assistance completed. Initial lab(s) drawn, by ak, koCamila sent to lab. Urine collected: clean catch specimen, clear. Inserted saline lock: 22 gauge in left antecubital area, using aseptic technique. Blood collected. 08:33 Provided Education on: labs/IV. ko1 08:38 Delroy Payton MD is Referral Physician. ec2 08:38 IV discontinued, intact, bleeding controlled, No redness/swelling at site. Pressure ko1 dressing applied. Administered Medications: No medications were administered Medication: 08:33 VIS not applicable for this client. ko1 Outcome: 08:37 Discharge ordered by . ec2 08:47 Discharged to home ambulatory, ko1 08:47 Condition: stable 08:47 Discharge instructions given to patient, Instructed on discharge instructions, follow up and referral plans. medication usage, Demonstrated understanding of instructions, follow-up care, medications, Prescriptions given X 1, 08:47 Patient left the ED. ko1 Signatures: Dispatcher [employer] Loretta Lee RN RN ap3 Trista Reynoso RN RN ko1 Roslyn Carter Edwin, MD MD ec2
--- NOTE | 2024-02-22 08:38 | EDPHYS ---
Physician Documentation [facility] Name: Ash Goodman Age: 23 yrs Sex: Male : 2000 Arrival Date: 02/22/2024 Time: 07:35 Bed 5 Private MD: ED Physician Jose Juan Craig HPI: 02/21 07:56 This 23 yrs old Male presents to ER via Ambulatory with complaints of Possible Kidney ec2 Stone, Abdominal Pain, Possible blood in urine. 07:56 Patient arrives today for evaluation of abdominal pain. Patient complaining of ec2 right-sided abdominal pain, also with orange-colored urine. Symptoms have been ongoing for several months. Patient reports no nausea or vomiting. Reports he takes Advil for pain.. Historical: - Allergies: 07:49 No Known Allergies; ap3 - Home Meds: 07:49 None [Active]; ap3 - PMHx: 07:49 Kidney stone; ap3 - Immunization history:: Adult Immunizations up to date. - Infectious Disease History:: Denies. - Social history:: Smoking status: Reported history of juuling and/or vaping. ROS: 07:56 Constitutional: as per hpi ec2 Exam: 07:56 Constitutional: GEN: NAD Head: atraumatic Eyes: EOMI Ears: External ears are ec2 normal. CV: regular rate LUNGS: no respiratory distress ABD: non-distended, soft, no guarding, not rigid, negative flank bilaterally, minimal TTP to the right lower quadrant. SKIN: no evidence of rashes MSK: no evidence of trauma NEURO: moves all extremities equally Vital Signs: 07:46 BP 177 / 95; Pulse 92; Resp 17; Temp 98.4; Weight 73.48 kg; Height 5 ft. 9 in. ; ap3 08:33 BP 162 / 91; Pulse 88; Resp 15; Pulse Ox 99% on R/A; ko1 07:46 Body Mass Index 23.92 (73.48 kg, 175.26 cm) ap3 MDM: 07:50 Patient medically screened. ec2 07:56 Data reviewed: vital signs. ED course: Patient arrives today for right-sided abdominal ec2 pain. Examination remarkable for abdominal findings as above. Will obtain urine studies, CT imaging as well as basic lab work. Evaluating for urolithiasis, doubt appendicitis, doubt gallbladder pathology. . 08:37 ED course: Urine shows blood urine, CT imaging shows renal calculus on the right side ec2 and left side nonobstructing. Also has some hydroureter on the right side with a likely recently passed stone. Reassuring CBC. No obstructing stones evident. Will discharge home have follow-up with urology as needed. . 02/21 07:55 Order name: UAM; Complete Time: 08:36 ec2 02/21 07:55 Order name: CBC with Diff; Complete Time: 08:36 ec2 02/21 07:55 Order name: BMP; Complete Time: 08:36 ec2 02/21 07:55 Order name: CT Abd/Pelvis - Without Contrast; Complete Time: 08:36 ec2 Administered Medications: No medications were administered Disposition Summary: 02/22/24 08:37 Discharge Ordered Notes: Location: Home ec2 Condition: Stable ec2 Diagnosis - Calculus of kidney ec2 Followup: ec2 - With: Private Physician - When: - Reason: Re-evaluation by your physician Followup: ec2 - With: Delroy Payton MD - When: - Reason: Recheck today's complaints, Continuance of care Discharge Instructions: - Discharge Summary Sheet ko1 - Kidney Stones ec2 Forms: - Work release form ko1 - Medication Reconciliation Form ec2 - Thank You Letter ec2 - Antibiotic Education ec2 - Prescription Opioid Use ec2 - Patient Portal Instructions ec2 - Leadership Thank You Letter ec2 Prescriptions: - acetaminophen-codeine 300-15 mg Oral tablet - take 1 tablet ORAL route every 8 hours; 10 tablet; Refills: 0, Product ec2 Selection Permitted Signatures: Dispatcher [employer] Loretta Lee RN RN ap3 Jose Juan Craig MD MD ec2
[2024-02-23 05:28] VITALS: BP 162/91; TEMP 98.4; O2SAT 99
== END 2024-02-22 08:47 | disposition home or self-care (01) ==
LOC: ER 07:35
DX: N20.0 Calculus of kidney (principal); Z87.442 Personal history of urinary calculi
CPT/HCPCS: 36415; 74176; 80048; 81001; 85025

== ENCOUNTER 2024-04-03 07:23 | Day surgery (SDC) | payer BC ==
[2024-03-20 11:56] LABS: Absolute Eosinophils 0.1 K/uL (0-0.5); Absolute Lymphocytes (CBC) 2.2 K/uL (0.7-4.9); Absolute Monocytes 0.6 K/uL (0.1-1.3); Basophils % 0.6 % (0-1.3); Eosinophils % 0.9 % (0-4.4); Hematocrit 47.3 % (39.6-49.0); Hemoglobin 16.2 g/dL (13.6-17.9); Lymphocytes % 32.1 % (15.3-44.8); MCH 32.2 pg (27.0-35.0); MCHC 34.2 g/dL (32.0-36.0); MCV 94.3 fL (80-100); MPV 8.5 fL (7.6-11.3); Monocytes % 8.8 % (3.3-12.3); Neutrophils % 57.6 % (41.7-73.7); Nucleated Red Blood Cells % 0.1 % (0-0); Platelets 353 thou/uL (152-406); RBC Red Blood Cell Count 5.02 M/uL (4.33-5.43); Red Cell Distribution Width 12.3 % (12.1-15.2)
[2024-03-20 12:37] LABS: Anion Gap 8.9 mEq/L (5.0-15.0); Potassium 3.9 mEq/L (3.5-5.1)
--- NOTE | 2024-03-23 14:47 | EKG ---
Test Date: 2024-03-20 Test Time: 11:37:22 Process Improvement Analyst: DARRON MEASUREMENT RESULTS: Intervals: Rate: 58 ND: 126 QRSD: 100 QT: 424 QTc: 416 [place]: P: 78 ND: 126 QRS: 78 T: 73 INTERPRETIVE STATEMENTS: Sinus bradycardia Otherwise normal ECG No previous ECG available for comparison Electronically Signed On 03-23-24 14:39:50 CDT by Alexey Balderas
[2024-04-03] MEDS: Ringers Lactate 1,000 ML IV ONE (07:54)
[2024-04-03] MEDS ORDERED: propofoL 200 MG/20 ML VIAL IV ONE (08:54)
[2024-04-03] MEDS ORDERED: LIDOCAINE 1% MPF 5 ML VIAL ONE (08:54)
[2024-04-03] MEDS ORDERED: MIDAZOLAM HCL 2 MG/2 ML INJ ONE (08:55)
[2024-04-03] MEDS ORDERED: FENTANYL CITR 100 MCG/2 ML ONE (08:55)
[2024-04-03] MEDS: CEFAZOLIN SODIUM 2 GM/VIAL ONE (09:20)
[2024-04-03] MEDS ORDERED: dexAMETHasone 4 MG/ML VIAL ONE (09:31)
[2024-04-03] MEDS ORDERED: KETOROLAC 30 MG/ML INJ ONE (09:32)
[2024-04-03] MEDS ORDERED: ONDANSETRON 4 MG/2 ML VIAL ONE (09:32)
[2024-04-03] MEDS ORDERED: Mastisol Adhesive Liq ONE (09:35)
[2024-04-03] MEDS ORDERED: LABETALOL HCL 100 MG/20 ML ONE (10:57)
[2024-04-03] MEDS: LABETALOL 20 MG/4ML SYRINGE IV ONE (11:00)
[2024-04-03] MEDS ORDERED: PHENAZOPYRIDINE 100MG TAB PO ONE ×2 (11:03→11:32)
[2024-04-03] MEDS: PHENAZOPYRIDINE 100MG TAB PO ONE (11:05)
[2024-04-03] MEDS: HYDRALAZINE HCL 20 MG/ML VIAL ONE (11:48)
[2024-04-03] MEDS ORDERED: CODEINE 30MG/APAP 300MG TAB ONE (12:26)
[2024-04-03] MEDS: CODEINE 30MG/APAP 300MG TAB PO PRN (12:32)
[2024-04-03 14:09] VITALS: BP 151/100; TEMP 97.7; O2SAT 99
--- NOTE | 2024-04-03 21:00 | OP ---
Surgeon: CHELA CLARKE Principal Diagnosis: Right nephrolithiasis, 13 mm. Postoperative Diagnosis: Right nephrolithiasis, 13 mm. Principal Procedure: 1.Cystoscopy with right ureteral stent placement. 2.Right ESWL/extracorporeal shockwave lithotripsy. Indication For Procedure: Mr. Goodman is a recurrent stone former, who presented with occasional inter mittent right flank pain, but found to have a significant volume right-sided kidney stone measuring a bout 13 mm with a small volume left nephrolithiasis at about 7 mm. Because of his persistent right f lank pain and the potential that the stone might be ball valving, surgical therapy was recommended vi a ESWL, not to mention the stone size, would significantly prohibit its successful spontaneous passag e. Procedure In Detail: The patient was consented in the preoperative holding area before being transfe rred to the operative suite where general anesthesia was induced. He was given Ancef 2 g IV antimicr obial prophylaxis, and pneumo boots were provided for DVT prophylaxis. He was placed in the lithotom y position initially, padded and secured to the table appropriately, and his genitalia was prepped wi th Hibiclens before being draped in standard fashion. Using a 22-[place] rigid cystoscope to traverse the urethra and enter the bladder with ease. The bladder was decompressed of fluid and urine, and t he right ureteral orifice was found to be orthotopic in location and cannulated using the tip of a 5- [place] ureteral access catheter. A Sensor wire was passed via the 5-[place] ureteral access catheter with ease up the ureter and eventually coiled fluoroscopically superior to the stone in the renal pel vis, likely within the upper pole calyx. As a result, I passed a 6-[place] x 26 cm double-J ureteral stent over the wire and a coil of the stent was formed within the renal pelvis next to the stone. An additional coil cystoscopically was formed in his bladder. The stent was left on its tether; so, af ter decompressing his bladder of fluid and urine, I removed the scope and then attached the tether of the stent to the glans penis using Mastisol and Steri-Strips. He was then transferred to a [facility] before being transferred to the recovery room in good condition after completion of shockwave litho tripsy as follows: The patient was returned to the supine position, taken out of the lithotomy posit ion, and a water bath was placed beneath his right flank. Shockwave lithotripsy was then performed a fter targeting in the dorsal ventral and left-right positions. Shockwave lithotripsy was initiated a t a power of 4 and increased over the course of about 500 shocks to a power of 6.5. A 2-minute pause was given after about 200 shocks. The stone did seem to fragment nicely; so after about 500 shocks, we increased the rate to 1.5 hertz over the course of the next 1000 shocks delivered. We then surve yed the area after a total of around 1900 shocks had been delivered, and the stone had fragmented xochitl te nicely and a cloud of stone dust was remnant in the renal pelvis next to the coil of the stent. A s a result, we targeted that stone dust cloud and continued shock wave lithotripsy for an additional approximately 580 shocks for a total of 2500 shocks delivered. In the end, he was again transferred to a stretcher before being transferred to the recovery room in good condition. Complications: None. Discharge Disposition: He may follow up in the Urology Clinic within the next 2-3 days to have the t ethered ureteral stent removed. He may be given a dose of Keflex at the time of stent extraction, pr ior to the stent being removed. Subsequent followup should be established electively with a KUB obta ined a day or two prior to that followup appointment. He may subsequently benefit from shockwave lit hotripsy of his asymptomatic left kidney stone that is 7 mm as well. We will wait to see if that is visible on the KUB. NATALIA/HAFSAL Voice ID: [id number] Report ID: [id number]
== END 2024-04-03 13:00 | disposition home or self-care (01) ==
LOC: OR 07:23
PROVIDERS: ATTEND Urology
PROC: 0TF3XZZ Fragmentation in Right Kidney Pelvis, External Approach (ICD-10-PCS; 2024-04-03)
PROC: 0T768DZ Dilation of Right Ureter with Intraluminal Device, Via Natural or Artificial Opening Endoscopic (ICD-10-PCS; principal; 2024-04-03 08:30)
DX: N20.0 Calculus of kidney (principal); R10.9 Unspecified abdominal pain; F17.210 Nicotine dependence, cigarettes, uncomplicated
CPT/HCPCS: 93005; 87088; 85025; 87086; 80048; 36415; 85610; 50590 ×2; 52332; J0360; J2704; J1100; J2001; J2250; J3010; J2405; J7120

== ENCOUNTER 2024-04-08 19:55 | Observation (INO) | payer BC ==
--- NOTE | 2024-04-08 20:55 | RAD REPORT ---
EXAM DESCRIPTION: CT - Stone Protocol - 04/08/2024 8:36 pm CLINICAL HISTORY: Abdominal pain. Right flank pain COMPARISON: February 2024 TECHNIQUE: Computed axial tomography of the abdomen pelvis was obtained without oral or IV contrast. Lack of IV and oral contrast limits evaluation of solid organs, appendix, bowel, and vessels. [place] l reformatted images were obtained and reviewed. All CT scans are performed using dose optimization technique as appropriate and may include automated exposure control or mA/KV adjustment according to patient size. FINDINGS: Moderate to marked right hydronephrosis. Several small nonobstructing right renal calculi. Right ureter dilated. Cluster of calculi are present within the distal right ureter which measures 2 6 millimeters cranial caudal length. Small nonobstructing left renal calculus. The liver, spleen, pancreas and adrenals appear grossly normal There is no evidence of diverticulitis. The appendix appears normal IMPRESSION: Cluster of calculi distal right ureter resulting in moderate to marked right hydronephro sis
[2024-04-08 21:11] LABS: Specific Gravity 1.014 (1.005-1.030); Sqamous Epithelial None Seen /HPF (None Seen); Urine Bacteria None Seen /HPF (<20); Urine Bilirubin NEGATIVE (Negative); Urine Blood 1+ (Negative); Urine Clarity Clear (Clear); Urine Color Colorless (Yellow); Urine Culture Reflex Order REFLEXED; Urine Glucose NEGATIVE (Negative); Urine Ketones NEGATIVE (Negative); Urine Microscopic Reflex YN ORDER UMIC; Urine Nitrite NEGATIVE (Negative); Urine Protein NEGATIVE (Negative); Urine RBC <5 /HPF (None Seen); Urine Urobilinogen Normal (Normal); Urine pH 6.5 (5.0-7.0)
[2024-04-08] MEDS ORDERED: ONDANSETRON 4 MG/2 ML VIAL ONE (22:31)
[2024-04-08] MEDS ORDERED: NA CHLORIDE 0.9% 1,000 ML ONE ×2 (22:32→23:45)
[2024-04-08] MEDS ORDERED: HYDROMORPHONE HCL 1 MG/ML INJ ONE (22:32)
[2024-04-08 23:15] LABS: Absolute Basophils 0.1 K/uL (0-0.5); Absolute Eosinophils 0.2 K/uL (0-0.5); Absolute Lymphocytes (CBC) 3.1 K/uL (0.7-4.9); Absolute Monocytes 1.3 K/uL (0.1-1.3); Absolute Neutrophil 7.1 K/uL (1.8-8.0); Basophils % 0.4 % (0-1.3); Eosinophils % 1.6 % (0-4.4); Hematocrit 43.3 % (39.6-49.0); Hemoglobin 15.1 g/dL (13.6-17.9); Lymphocytes % 26.3 % (15.3-44.8); MCH 32.5 pg (27.0-35.0); MCHC 34.8 g/dL (32.0-36.0); MCV 93.2 fL (80-100); MPV 8.5 fL (7.6-11.3); Neutrophils % 60.7 % (41.7-73.7); Platelets 314 thou/uL (152-406); RBC Red Blood Cell Count 4.65 M/uL (4.33-5.43); Red Cell Distribution Width 12.2 % (12.1-15.2)
[2024-04-08 23:31] LABS: Albumin 4.7 g/dL (3.4-5.0); Albumin/Globulin Ratio 1.1 (1.1-1.8); Anion Gap 9.4 mEq/L (5.0-15.0); Bilirubin Total 0.8 mg/dL (0.2-1.0); Globulin 4.2 g/dL (2.3-3.5); Potassium 3.4 mEq/L (3.5-5.1); Protein, Total 8.9 g/dL (6.4-8.2)
[2024-04-08] MEDS ORDERED: KETOROLAC 30 MG/ML INJ ONE (23:45)
[2024-04-09] MEDS ORDERED: ACETAMINOPHEN 325 MG TABLET PO PRN (00:32)
[2024-04-09] MEDS ORDERED: MORPHINE 4 MG/ML SYR IV PRN (00:39)
[2024-04-09] MEDS ORDERED: HYDROCODONE/APAP 10/325 TAB PO PRN (00:39)
--- NOTE | 2024-04-09 00:39 | P.HP ---
Certification for Inpatient Patient admitted to: Observation With expected LOS: <2 Midnights Practitioner: I am a practitioner with admitting privileges, knowledge of patient current condition, hospital course, and medical plan of care. Services: Services provided to patient in accordance with Admission requirements found in Title 42 Section 412.3 of the Code of Federal Regulations Patient History Date of Service: 04/09/24 Reason for admission: ureteric colic History of Present Illness: 24-year-old male with a past medical history of nephrolithiasis who underwent lithotripsy recently by Dr. Payton who has been doing okay but started having flank pain since yesterday. Pain is mostly located in the right side of the flank and associated with some dysuria. No fever or chills. No nausea vomiting or diarrhea. Pain is sharp 6 out of 10 in severity radiating to the urethra. Patient was seen and examined in ER and had a CT scan which was consistent with Cluster of calculi distal right ureter resulting in moderate to marked right hydronephrosis ER already contacted Dr. Payton who recommended the patient keep n.p.o. and admitted for further management. Allergies No Known Allergies Allergy (Verified 03/20/24 10:59) Home medications list reviewed: Yes Home Medications: Codeine/APAP [Tylenol #3*] 1 tab PO Q6H PRN #12 tab 04/03/24 - Past Medical/Surgical History Past Medical History: Reviewed- Non-Contributory -: Nephrolithiasis Past Surgical History: Reviewed- Non-Contributory -: Status post lithotripsy - Family History Family History: Reviewed- Non-Contributory - Social History Smoking Status: Never smoker Review of Systems 10-point ROS is otherwise unremarkable Physical Examination - Vital Signs Temperature: 98 F Blood Pressure: 152/90 Pulse: 82 Respirations: 18 Pulse Ox (%): 94 - Physical Exam General: Alert, Oriented x3, Cooperative, Mild distress HEENT: Atraumatic, Normocephalic Neck: Supple, 2+ carotid pulse no bruit Respiratory: Clear to auscultation bilaterally, Normal air movement Cardiovascular: Regular rate/rhythm, Normal S1 S2 Capillary refill: <2 Seconds Gastrointestinal: Soft and benign, W/out hepatosplenomegaly Musculoskeletal: No clubbing, No swelling Integumentary: No rashes, No breakdown Neurological: Normal gait, Normal strength at 5/5 x4 extr, Cranial nerves 3-12 intact, Normal reflexes 2+ Lymphatics: No axilla or inguinal lymphadenopathy Urinary: Other (Right Flank Pain ) - Studies Laboratory Data (last 24 hrs) 04/08/24 04/08/24 22:25 22:25 WBC 11.70 H Hgb 15.1 Hct 43.3 Plt Count 314 Sodium 134 L Potassium 3.4 L BUN 15 Creatinine 1.14 Glucose 95 Total Bilirubin 0.8 AST 17 ALT 30 Alkaline Phosphatase 83 Lipase 24 Assessment and Plan - Problems (Diagnosis) (1) Ureteric colic Current Visit: Yes Status: Acute Plan: Right ureteric colic Right-sided nephrolithiasis CT showing cluster of calculi distal right ureter resulting in moderate to marked right hydronephrosis Pain control IV fluids N.p.o. for now ER already consulted Dr. Payton Started on antibiotic empirically GI/DVT prophylaxis Advanced directive full code Discussed with patient and family Discharge Plan: Home Plan to discharge in: 24 Hours - Advance Directives Does patient have a Living Will: No Does patient have a Durable POA for Healthcare: No - Code Status/Comfort Care Code Status: Full Code Time Spent Managing Pts Care (In Minutes): 48
--- NOTE | 2024-04-09 00:44 | EDPHYS ---
Physician Documentation [facility] Name: Ash Goodman Age: 24 yrs Sex: Male : 2000 Arrival Date: 04/08/2024 Time: 19:55 Bed 20 Private MD: ED Physician Rafael Crenshaw HPI: 04/08 20:30 This 24 yrs old Male presents to ER via Ambulatory with complaints of Post Surgical cp Pain. 20:30 Patient is a 24-year-old male who returns to the emergency department with complaints cp of right flank pain. Patient reports having lithotripsy surgery performed last Tuesday with subsequent follow-up with Dr. Payton this past Tuesday and having the right ureter stent removed. Patient reports increasing right flank pain since that is worse today, nausea but no active vomiting. Historical: - Allergies: 20:14 No Known Allergies; as6 - PMHx: 20:14 Kidney stone; as6 - PSHx: 20:14 Lithotripsy; as6 - Immunization history:: Adult Immunizations up to date. - Infectious Disease History:: Denies. - Social history:: Smoking status: Reported history of juuling and/or vaping. ROS: 20:35 Back: Positive for flank pain, on the right, cp 20:35 Constitutional: Negative for fever, poor PO intake, cp 20:35 Respiratory: Negative for cough, shortness of breath, wheezing, 20:35 Abdomen/GI: Positive for nausea, 20:35 : Negative for testicular pain 20:35 Neuro: Negative for altered mental status, dizziness, headache, weakness, 20:35 All other systems are negative, Exam: 20:40 Constitutional: The patient appears in no acute distress, alert, awake, non-toxic, well cp developed, well nourished, uncomfortable, 20:40 Head/Face: Normocephalic, atraumatic. cp 20:40 Eyes: Periorbital structures: appear normal, Conjunctiva: normal, no exudate, no injection, Sclera: no appreciated abnormality, Lids and lashes: appear normal, bilaterally, 20:40 ENT: External ear(s): are unremarkable, Nose: is normal, Mouth: Lips: moist, Oral mucosa: pink and intact, moist, Posterior pharynx: Airway: no evidence of obstruction, patent, 20:40 Chest/axilla: Inspection: normal, Palpation: is normal, no crepitus, no tenderness, 20:40 Cardiovascular: Rate: normal, Rhythm: regular, 20:40 Respiratory: the patient does not display signs of respiratory distress, Respirations: normal, no use of accessory muscles, no retractions, labored breathing, is not present, Breath sounds: are clear throughout, no decreased breath sounds, no stridor, no wheezing, 20:40 Abdomen/GI: Inspection: abdomen appears normal, Bowel sounds: active, all quadrants, Palpation: soft, in all quadrants, moderate abdominal tenderness, in the anterior aspect of right lateral abdomen and posterior aspect of right lateral abdomen, rebound tenderness, is not appreciated, involuntary guarding, is not appreciated, 20:40 Skin: cellulitis, is not appreciated, no rash present. 20:40 Neuro: Orientation: to person, place \T\ time. Mentation: is normal, Motor: moves all fours, strength is normal, Sensation: is normal, Vital Signs: 20:12 BP 160 / 101; Pulse 85; Resp 18 S; Temp 99(TE); Pulse Ox 100% on R/A; Weight 74.84 kg as6 (R); Height 5 ft. 10 in. (R); Pain 6/10; 22:30 BP 163 / 99; Pulse 83; Resp 16 S; Pulse Ox 100% on R/A; jw7 23:30 BP 157 / 98; Pulse 80; Resp 17 S; Pulse Ox 100% on R/A; jw7 04/09 01:00 BP 153 / 97; Pulse 70; Resp 16 S; Pulse Ox 100% on R/A; jw7 02:00 BP 140 / 85; Pulse 64; Resp 16 S; Pulse Ox 100% on R/A; jw7 04/08 20:12 Body Mass Index 23.67 (74.84 kg, 177.8 cm) as6 04/08 20:12 Pain Scale: Adult as6 MDM: 04/08 20:20 Patient medically screened. cp 04/09 00:45 Data reviewed: vital signs, nurses notes, lab test result(s), radiologic studies, CT cp scan, and as a result, I will admit patient, consult DR Payton. 00:45 Differential diagnosis: sepsis, uti, kidney stone, hydronephrosis. I considered the cp following discharge prescriptions or medication management in the emergency department Medications were administered in the Emergency Department. See MAR. Counseling: I had a detailed discussion with the patient and/or guardian regarding the historical points, exam findings, and any diagnostic results supporting the discharge/admit diagnosis, lab results, radiology results. Response to treatment: the patient's symptoms have markedly improved after treatment. 04/08 20:24 Order name: CBC with Diff; Complete Time: 23:32 04/08 23:32 Interpretation: Normal except: WBC 11.70. 04/08 20:24 Order name: CMP; Complete Time: 23:32 cp / 23:32 Interpretation: Normal except: NA 134; K 3.4; TP 8.9; GLOB 4.2. 04/08 20:24 Order name: Lipase; Complete Time: 23:32 04/08 20:24 Order name: Urinalysis w/ reflexes; Complete Time: 21:28 04/08 22:57 Interpretation: Reviewed. 04/08 21:14 Order name: Urine Culture EDCT 04/08 21:30 Order name: Lactate w/ 2H reflex if indic. 04/08 21:30 Order name: Blood Culture Adult (2) / 00:39 Order name: Urinalysis w/ reflexes EDCT 04/09 00:39 Order name: CBC with Automated Diff EDCT 04/09 00:39 Order name: CBC with Automated Diff EDCT 04/09 00:39 Order name: Comprehensive Metabolic Panel EDCT 04/09 00:39 Order name: Comprehensive Metabolic Panel EDCT 04/08 20:24 Order name: CT Stone Protocol; Complete Time: 21:28 04/08 22:01 Interpretation: Report reviewed. 04/09 00:39 Order name: CONS Physician Consult EDCT 04/08 20:24 Order name: IV Saline Lock; Complete Time: 22:36 cp 04/08 20:24 Order name: Labs collected and sent; Complete Time: 22:36 cp 04/09 00:46 Order name: NPO; Complete Time: 00:48 cp Administered Medications: 04/08 21:29 CANCELLED (Physician Discretion): morphineor iv 4 mg IVP once over 4 mins 23:03 Drug: HYDROmorphone IVP 1 mg IVP once Route: IVP; Site: right antecubital; jw7 04/09 01:10 Follow up: Response: No adverse reaction; Marked relief of symptoms; Pain is decreased jw7 04/08 23:04 Drug: NS 0.9% IV 1000 ml IV at 1 bolus Per protocol; 1000 mL bolus Route: IV; Rate: 1 jw7 bolus; Site: right antecubital; 04/09 01:10 Follow up: Response: No adverse reaction; IV Status: Completed infusion; IV Intake: jw7 1000ml 04/08 23:04 Drug: Ondansetron IVP 4 mg IVP once; over 2 minutes Route: IVP; Site: right antecubital;jw7 04/09 01:09 Follow up: Response: No adverse reaction; Marked relief of symptoms jw7 04/08 23:50 Drug: Ketorolac IVP 15 mg IVP once Route: IVP; Site: right antecubital; jw7 04/09 01:10 Follow up: Response: No adverse reaction; Marked relief of symptoms; Pain is decreased jw7 04/08 23:50 Drug: NS 0.9% IV 1000 ml IV at 1 bolus Per protocol; 1000 mL bolus Route: IV; Rate: 1 jw7 bolus; Site: right antecubital; 04/09 01:10 Follow up: Response: No adverse reaction; IV Status: Completed infusion; IV Intake: jw7 1000ml 01:07 Drug: Rocephin IV 1 grams IV at calculated rate once; Given slow IV push per pharmacy jw7 instructions Route: IV; Rate: calculated rate; Site: right antecubital; 01:30 Follow up: Response: No adverse reaction; IV Status: Completed infusion; IV Intake: [id number] Disposition Summary: 04/09/24 00:43 Hospitalization Ordered Notes: Hospitalization Status: Observation cp Provider: Aristides Leon cp Location: Telemetry/[facility] (observation) cp Condition: Stable cp Problem: new cp Symptoms: have improved cp Bed/Room Type: Standard Room Assignment: 407(04/09/24 00:53) cg Diagnosis - Hydronephrosis with renal and ureteral calculous obstruction cp Forms: - Medication Reconciliation Form cp - SBAR form cp - Leadership Thank You Letter cp Addendum: 04/10/2024 04:51 Co-signature as Attending Physician, Rafael Crenshaw MD I reviewed the patient's care r t provided by the Advanced Practice Provider and agree with the diagnosis and treatment plan. Signatures: Dispatcher [employer] EDMS Moy Maria PA PA cp Garcia, Cindy, YVETTE RN cg Eliud Powell RN RN as6 Francine Duque RN RN jw7 Rafael Crenshaw MD MD rt Corrections: (The following items were deleted from the chart) 04/08 21:29 20:24 morphine IVP or IV 4 mg IVP once over 4 mins ordered. cp cp 21:30 21:30 LACTATE+C.LAB.BRZ ordered. EDMS EDMS : 21:30 BLOOD CULTURE*+BA.LAB.BRZ ordered. EDMS EDMS 04/09 00:53 00:43 cp cg
--- NOTE | 2024-04-09 00:44 | ER ---
Nurse's Notes [facility] Name: Ash Goodman Age: 24 yrs Sex: Male : 2000 Arrival Date: 04/08/2024 Time: 19:55 Bed 20 Private MD: Diagnosis: Hydronephrosis with renal and ureteral calculous obstruction Presentation: 04/08 20:12 Chief complaint: Patient states: pt had a lithotripsy Tuesday and Tuesday had his stent as6 removed and has had burning with urination and right flank pain. Coronavirus screen: At this time, the client does not indicate any symptoms associated with coronavirus-19. Ebola Screen: No symptoms or risks identified at this time. Initial Sepsis Screen: Does the patient meet any 2 criteria? No. Patient's initial sepsis screen is negative. Does the patient have a suspected source of infection? No. Patient's initial sepsis screen is negative. Risk Assessment: Do you want to hurt yourself or someone else? Patient reports no desire to harm self or others. Onset of symptoms was April 07, 2024. 20:12 Method Of Arrival: Ambulatory as6 20:12 Acuity: MANDA 3 as6 Triage Assessment: 20:15 General: Appears in no apparent distress. Behavior is calm, cooperative. Pain: as6 Complains of pain in right flank. Historical: - Allergies: 20:14 No Known Allergies; as6 - PMHx: 20:14 Kidney stone; as6 - PSHx: 20:14 Lithotripsy; as6 - Immunization history:: Adult Immunizations up to date. - Infectious Disease History:: Denies. - Social history:: Smoking status: Reported history of juuling and/or vaping. Screenin:00 Abuse screen: Denies threats or abuse. Denies injuries from another. jw7 22:00 [facility] ED Fall Risk Assessment (Adult) History of falling in the last 3 months, jw7 including since admission No falls in past 3 months (0 pts) Confusion or Disorientation No (0 pts) Intoxicated or Sedated No (0 pts) Impaired Gait No (0 pts) Mobility Assist Device Used No (0 pt) Altered Elimination No (0 pt) Score/Fall Risk Level 0 - 2 = Low Risk Oriented to surroundings, Maintained a safe environment, Educated pt \T\ family on fall prevention, incl call for assistance when getting out of bed. Nutritional screening: No deficits noted. Tuberculosis screening: No symptoms or risk factors identified. Assessment: 22:00 General: Appears in no apparent distress. uncomfortable, Behavior is calm, cooperative, jw7 appropriate for age. 22:00 Pain: Complains of pain in back and right flank Pain does not radiate. Pain currently jw7 is 9 out of 10 on a pain scale. Quality of pain is described as burning, sharp, throbbing, Pain began suddenly, Is continuous. Neuro: Level of Consciousness is awake, alert, obeys commands, Oriented to person, place, time, situation, Appropriate for age. Cardiovascular: Heart tones S1 S2 present Capillary refill < 3 seconds Clubbing of nail beds is absent JVD is absent Patient's skin is warm and dry. Respiratory: Airway is patent Trachea midline Respiratory effort is even, unlabored, Respiratory pattern is regular, symmetrical. GI: Abdomen is flat, non-distended, Bowel sounds present X 4 quads. Abd is soft and non tender. : Reports burning with urination. EENT: No deficits noted. No signs and/or symptoms were reported regarding the EENT system. Derm: Skin is intact, is healthy with good turgor, Skin is dry, Skin is normal, Skin temperature is warm. Musculoskeletal: Circulation, motion, and sensation intact. Range of motion: intact in all extremities. 23:00 Reassessment: Patient appears in no apparent distress at this time. No changes from jw7 previously documented assessment. Patient and/or family updated on plan of care and expected duration. Pain level reassessed. Patient is alert, oriented x 3, equal unlabored respirations, skin warm/dry/pink. 04/09 00:00 Reassessment: Patient appears in no apparent distress at this time. Patient and/or jw7 family updated on plan of care and expected duration. Pain level reassessed. Patient is alert, oriented x 3, equal unlabored respirations, skin warm/dry/pink. Patient states feeling better. Patient states symptoms have improved. 01:00 Reassessment: Patient appears in no apparent distress at this time. No changes from jw7 previously documented assessment. Patient and/or family updated on plan of care and expected duration. Pain level reassessed. Patient is alert, oriented x 3, equal unlabored respirations, skin warm/dry/pink. 02:00 Reassessment: Patient appears in no apparent distress at this time. No changes from jw7 previously documented assessment. Patient and/or family updated on plan of care and expected duration. Pain level reassessed. Patient is alert, oriented x 3, equal unlabored respirations, skin warm/dry/pink. Vital Signs: 04/08 20:12 BP 160 / 101; Pulse 85; Resp 18 S; Temp 99(TE); Pulse Ox 100% on R/A; Weight 74.84 kg as6 (R); Height 5 ft. 10 in. (R); Pain 6/10; 22:30 BP 163 / 99; Pulse 83; Resp 16 S; Pulse Ox 100% on R/A; jw7 23:30 BP 157 / 98; Pulse 80; Resp 17 S; Pulse Ox 100% on R/A; jw7 04/09 01:00 BP 153 / 97; Pulse 70; Resp 16 S; Pulse Ox 100% on R/A; jw7 02:00 BP 140 / 85; Pulse 64; Resp 16 S; Pulse Ox 100% on R/A; jw7 04/08 20:12 Body Mass Index 23.67 (74.84 kg, 177.8 cm) as6 04/08 20:12 Pain Scale: Adult as6 ED Course: 04/08 20:00 Patient arrived in ED. jj6 20:06 Moy Maria PA is PHCP. cp 20:06 Rafael Crenshaw MD is Attending Physician. cp 20:14 Triage completed. as6 20:14 Arm band placed on left wrist. as6 20:38 CT Stone Protocol In Process Unspecified. EDMS 20:49 Urinalysis w/ reflexes Sent. as6 21:59 Francine Duque, YVETTE is Primary Nurse. jw7 22:00 Patient has correct armband on for positive identification. Bed in low position. Call jw7 light in reach. Provided Education on: Use of Call LIght. 22:10 First set of blood cultures drawn by me. jw7 22:25 Inserted saline lock: 20 gauge in right antecubital area, using aseptic technique. jw7 Blood collected. 22:25 Initial lab(s) drawn, by tn, sent to lab. Second set of blood cultures drawn by me. jw7 04/09 00:42 Aristides Leon MD is Hospitalizing Provider. cp 01:08 No provider procedures requiring assistance completed. Patient admitted, IV remains in jw7 place. Administered Medications: 04/08 21:29 CANCELLED (Physician Discretion): morphineor iv 4 mg IVP once over 4 mins cp 23:03 Drug: HYDROmorphone IVP 1 mg IVP once Route: IVP; Site: right antecubital; jw7 04/09 01:10 Follow up: Response: No adverse reaction; Marked relief of symptoms; Pain is decreased jw7 04/08 23:04 Drug: NS 0.9% IV 1000 ml IV at 1 bolus Per protocol; 1000 mL bolus Route: IV; Rate: 1 jw7 bolus; Site: right antecubital; 04/09 01:10 Follow up: Response: No adverse reaction; IV Status: Completed infusion; IV Intake: jw7 1000ml 04/08 23:04 Drug: Ondansetron IVP 4 mg IVP once; over 2 minutes Route: IVP; Site: right antecubital;jw7 04/09 01:09 Follow up: Response: No adverse reaction; Marked relief of symptoms jw7 04/08 23:50 Drug: Ketorolac IVP 15 mg IVP once Route: IVP; Site: right antecubital; jw7 04/09 01:10 Follow up: Response: No adverse reaction; Marked relief of symptoms; Pain is decreased jw7 04/08 23:50 Drug: NS 0.9% IV 1000 ml IV at 1 bolus Per protocol; 1000 mL bolus Route: IV; Rate: 1 jw7 bolus; Site: right antecubital; 04/09 01:10 Follow up: Response: No adverse reaction; IV Status: Completed infusion; IV Intake: jw7 1000ml 01:07 Drug: Rocephin IV 1 grams IV at calculated rate once; Given slow IV push per pharmacy jw7 instructions Route: IV; Rate: calculated rate; Site: right antecubital; 01:30 Follow up: Response: No adverse reaction; IV Status: Completed infusion; IV Intake: [id number] Medication: 01:08 VIS not applicable for this client. jw7 Intake: 01:10 IV: 1000ml; Total: 1000ml. jw7 01:10 IV: 1000ml; Total: 2000ml. jw7 01:30 IV: 50ml; Total: 2050ml. jw7 Outcome: 00:43 Decision to Hospitalize by Provider. cp 02:00 Admitted to Tele accompanied by tech, via wheelchair, jw7 02:00 Condition: stable 02:00 Instructed on the need for admit, Demonstrated understanding of instructions, 02:04 Patient left the ED. vc1 Signatures: Dispatcher [employer] EDMS Moy Maria PA PA cp Jeffries, Jennifer jj6 Eliud Powell RN RN as6 Missy Broderick RN RN vc1 Francine Duque RN RN jw7 Corrections: (The following items were deleted from the chart) 00:44 00:41 General: Appears in no apparent distress. uncomfortable, Behavior is calm, jw7 cooperative, appropriate for age, jw7
[2024-04-09] MEDS: NA CHLORIDE 0.9% 1,000 ML IV SCH (01:00)
[2024-04-09] MEDS ORDERED: NA CHLORIDE 0.9% 50 ML ONE (01:01)
[2024-04-09] MEDS ORDERED: CEFTRIAXONE 1000 MG/VIAL ONE (01:01)
[2024-04-09 02:44] VITALS: BMI 23.6
[2024-04-09 03:20] VITALS: O2SAT 100
[2024-04-09] MEDS ORDERED: ONDANSETRON 4 MG/2 ML VIAL IV PRN (04:00)
[2024-04-09 12:35] VITALS: BP 128/68; TEMP 97.5
--- NOTE | 2024-04-09 13:42 | P.CNS ---
Date of Consult: 04/09/24 Reason for Consult: Ureteral colic Chief Complaint: ureteric colic History of Present Illness: 23-year-old healthy gentleman recurrent stone former with intermittent right flank pain and a 12 to 13 mm right radiopaque renal pelvic calculus s/p Right ESWL with tethered ureteral stent on 04/03/2024. The stent was removed on 04/06/2024. He contacted the answering service last night complaining of severe pain in his flank and his bladder, and I explained that if he was in such severe pain that he was unable to wait until tomorrow, he would have to go to the emergency room that night. There, a CT scan was completed revealing the presence of Steinstrasse extensively occupying the distal several centimeters of his right ureter. Since his admission, he has not required any additional narcotic pain management since 1 AM when he was in the emergency room. There, I recommended they give him ketorolac in addition to the Dilaudid that they provided. He was ostensibly comfortable at this time receiving ceftriaxone and IV fluids. Unfortunately, he was not straining his urine. Examination: Patient comfortable appearing and in no acute distress No dyspnea or sign of respiratory distress Alert, awake, oriented x 3 Lying in the hospital bed 04/08/2024 labs: WBC 11.7, creatinine 1.14 Diagnosis/counseling and recommendation: Steinstrasse p right ESWL with stent placed and removed on Tuesday, now with ureteral colic and right hydronephrosis -Strain urine for stone -Discharged with ketorolac orally and Paterson for pain management. Paterson for breakthrough -I offered patient the opportunity for stent placement urgently today or potentially we could plan more definitive management with ureteroscopy and laser lithotripsy tomorrow. I explained the limitations requiring the above-mentioned approaches. He preferred the latter and will be scheduled accordingly for right ureteroscopy with laser lithotripsy and stent placement. Since he is comfortable at this time and thinks he can manage the pain at home, he will be discharged and plan for outpatient elective management tomorrow. Allergies No Known Allergies Allergy (Verified 03/20/24 10:59) Home medications list reviewed: Yes Home Medications: Codeine/APAP [Tylenol #3*] 1 tab PO Q6H PRN #12 tab 04/03/24 Hydrocodone 5/APAP 325 [[place] 5/325] 1 tab PO Q6H PRN #15 tab 04/09/24 Ketorolac [Toradol*] 10 mg PO Q8H PRN #15 tab 04/09/24 - Past Medical/Surgical History Diabetic: No -: Nephrolithiasis -: Status post lithotripsy - Social History Place of Residence: Home Physical Examination Temp Pulse Resp BP Pulse Ox 97.5 F 48 L 15 128/68 98 04/09/24 12:00 04/09/24 12:00 04/09/24 12:00 04/09/24 12:00 04/09/24 12:00 Laboratory Data (last 24 hrs) 04/08/24 04/08/24 22:25 22:25 WBC 11.70 H Hgb 15.1 Hct 43.3 Plt Count 314 Sodium 134 L Potassium 3.4 L BUN 15 Creatinine 1.14 Glucose 95 Total Bilirubin 0.8 AST 17 ALT 30 Alkaline Phosphatase 83 Lipase 24 - Problems (1) Hydronephrosis, right Current Visit: Yes Status: Acute (2) Ureteric colic Current Visit: Yes Status: Acute (3) Ureterolithiasis Current Visit: Yes Status: Acute Conclusions/Impression: see A&P in HPI Critical Care: No Time Spent Managing Pts care (In Minutes): 30
--- NOTE | 2024-04-09 14:01 | P.DS ---
Admission Date: 04/09/24 Discharge Date: 04/09/24 Discharge Condition: GOOD Reason for Admission: ureteric colic Brief History of Present Illness: 24-year-old male with a past medical history of nephrolithiasis who underwent lithotripsy recently by Dr. Payton who has been doing okay but started having flank pain since yesterday. Pain is mostly located in the right side of the flank and associated with some dysuria. No fever or chills. No nausea vomiting or diarrhea. Pain is sharp 6 out of 10 in severity radiating to the urethra. Patient was seen and examined in ER and had a CT scan which was consistent with Cluster of calculi distal right ureter resulting in moderate to marked right hydronephrosis ER already contacted Dr. Payton who recommended the patient keep n.p.o. and admitted for further management. Hospital Course: Pt is a 24yo male with past medical history of nephrolithiasis who underwent lithotripsy recently by Dr. Payton. He as doing well at home until he started having right flank pain associated with some dysuria. Pt denies any fever or chill. On admission, CT abd showed clusters of calculi distal in the right ureter resulting in moderate to marked right hydronephrosis. The ER consulted Dr. Payton who evaluated and gave patient the option for inpatient or outpt treatment. Pt decided to follow up with Dr. Payton in clinic for ureteroscopy and laser lithotripsy. We discharged pt with ketorolac orally and [place] for pain management. Pt was in NAD prior to discharge. Vital Signs/Physical Exam: Temp Pulse Resp BP Pulse Ox 97.5 F 48 L 15 128/68 98 04/09/24 12:00 04/09/24 12:00 04/09/24 12:00 04/09/24 12:04/09/24 12:00 Laboratory Data at Discharge: WBC 11.70 thou/uL (4.3-10.9) H 04/08/24 22:25 Hgb 15.1 g/dL (13.6-17.9) 04/08/24 22:25 Hct 43.3 % (39.6-49.0) 04/08/24 22:25 Plt Count 314 thou/uL (152-406) 04/08/24 22:25 Sodium 134 mEq/L (136-145) L 04/08/24 22:25 Potassium 3.4 mEq/L (3.5-5.1) L 04/08/24 22:25 BUN 15 mg/dL (7-18) 04/08/24 22:25 Creatinine 1.14 mg/dL (0.70-1.30) 04/08/24 22:25 Glucose 95 mg/dL (74-106) 04/08/24 22:25 Total Bilirubin 0.8 mg/dL (0.2-1.0) 04/08/24 22:25 AST 17 U/L (15-37) 04/08/24 22:25 ALT 30 U/L (16-61) 04/08/24 22:25 Alkaline Phosphatase 83 U/L (45-117) 04/08/24 22:25 Lipase 24 U/L (13-75) 04/08/24 22:25 Home Medications: Codeine/APAP [Tylenol #3*] 1 tab PO Q6H PRN #12 tab 04/03/24 Hydrocodone 5/APAP 325 [[place] 5/325] 1 tab PO Q6H PRN #15 tab 04/09/24 Ketorolac [Toradol*] 10 mg PO Q8H PRN #15 tab 04/09/24 New Medications: Hydrocodone 5/APAP 325 [[place] 5/325] 1 tab PO Q6H PRN #15 tab PRN Reason: breakthrough Pain Ketorolac [Toradol*] 10 mg PO Q8H PRN #15 tab PRN Reason: Pain Scale 5-7 (Moderate) Physician Discharge Instructions: Continue ad mehdi activity. Take home meds as prescribed. Follow up with Dr. Lemus in clinic 1ithin 1 week for further treatment. Diet: Regular Activity: Ad mehdi Followup: Edda Pierre [Primary Care Provider] -
[2024-04-10] MEDS ORDERED: CEFTRIAXONE 1,000 MG in NA CHLORIDE 0.9% 50 ML IVPB SCH (09:00)
== END 2024-04-09 14:36 | disposition home or self-care (01) ==
LOC: ER 19:55 → ERHOLD 04-09 01:28 → 4TH 04-09 01:31
PROVIDERS: ADMIT Family Medicine; ATTEND Hospitalist
DX: N13.2 Hydronephrosis with renal and ureteral calculous obstruction (principal); N23 Unspecified renal colic; R30.0 Dysuria; R10.9 Unspecified abdominal pain; Z98.890 Other specified postprocedural states
CPT/HCPCS: 87040 ×2; 87088; 85025; 81001; 87086; 36415; 83605; 83690; 80053; 76377; 74176; J1170; J2405; J7030 ×4; J0696; G0378

== ENCOUNTER → 2024-04-10 | Day surgery (SDC) | payer BC ==
[~2024-04-10] MED LIST: FENTANYL CITR 100 MCG/2 ML ONE; KETOROLAC 30 MG/ML INJ ONE; LIDOCAINE 1% MPF 5 ML VIAL ONE; MIDAZOLAM HCL 2 MG/2 ML INJ ONE; ONDANSETRON 4 MG/2 ML VIAL ONE; propofoL 200 MG/20 ML VIAL IV ONE
[2024-04-10] MEDS: Ringers Lactate 1,000 ML IV ONE (11:40)
--- NOTE | 2024-04-10 11:42 | RAD REPORT ---
EXAM DESCRIPTION: RAD - Abdomen 1 View (KUB) - 04/10/2024 11:29 am CLINICAL HISTORY: PREPROCEDURE. Renal stones COMPARISON: Abdomen 1 View (KUB) dated 04/01/2023; Abdomen 1 View (KUB) dated 04/28/2020; Stone Protoc ol dated 04/08/2024 TECHNIQUE: Single AP view of the abdomen. FINDINGS: Nonobstructive bowel gas pattern. No air-fluid levels, free air, or pneumatosis. Mild linear residual 5-6 mm radiodensity at the lower pole of the right kidney, may relate to residua l calculus fragments or gravel. No significant bony abnormality. IMPRESSION: Suspected right lower renal pole residual calculus fragments or gravel as above.
[2024-04-10 11:59] VITALS: O2SAT 100
[2024-04-10] MEDS: CEFTRIAXONE 1000 MG/VIAL ONE (12:00)
[2024-04-10] MEDS: PHENAZOPYRIDINE 100MG TAB PO ONE (13:52)
[2024-04-10] MEDS: HYDROCODONE/APAP 5/325 MG TAB PO PRN (13:52)
[2024-04-10 14:19] VITALS: BP 143/90; TEMP 97.2
--- NOTE | 2024-04-10 15:44 | RAD REPORT ---
EXAM DESCRIPTION: RAD - Urethrocystogrphy Retrograde - 04/10/2024 1:23 pm CLINICAL HISTORY: ICD N 20.0 FINDINGS: 16 fluoroscopic spot images obtained. Fluoroscopy time.3 minutes Right ureter was cannulated and contrast administered. Subsequently an ureteral stent was placed. Exa mination was performed by Dr Payton
--- NOTE | 2024-04-10 23:23 | OP ---
Surgeon: CHELA CLARKE Preoperative Diagnoses: 1.Steinstrasse/ureteral calculi obstruction. 2.Status post right ESWL last week. 3.Right hydronephrosis. 4.Right flank pain. Postoperative Diagnoses: 1.Steinstrasse/ureteral calculi obstruction. 2.Status post right ESWL last week. 3.Right hydronephrosis. 4.Right flank pain. Principal Procedures: 1.Cystoscopy. 2.Right retrograde pyelography. 3.Right semi-rigid and flexible ureteroscopy. 4.Stone basketing. 5.Ureteral access sheath placement and washout of stone dust fragments. 6.Right ureteral stent placement. Indication For Procedure: Mr. Goodman presented and underwent right-sided ESWL last week for 13 mm naveen culus. He additionally underwent tethered right ureteral stent placement designed to try to decrease his risk of developing Steinstrasse as a complication of the procedure. That stent was removed on and of note, the patient had significant bother associated with the presence of the stent. Two days later, on Tuesday, he contacted me via the answering service complaining of significant right fl ank and right lower quadrant pain and ultimately went to the emergency department for evaluation. Th ere, a CT scan showed the presence of numerous stone fragments located within the distal ureter equiv alent to Steinstrasse, the breakdown product of the prior right ESWL, which occurred despite attempt to mitigate it via a right ureteral stent placement. Procedure In Detail: The patient was consented in the preoperative holding area before being transfe rred to the operative suite where general anesthesia was induced. He was given ceftriaxone 1 g IV an timicrobial prophylaxis, and pneumo boots were provided for DVT prophylaxis. He was placed in the li thotomy position, padded and secured to the table appropriately. His genitalia were prepped with Hib iclens and he was draped in standard fashion. The case was begun using a 22-Ukrainian rigid cystoscope to traverse the urethra and into the bladder with relative ease. The bladder was decompressed of flu id and urine and then surveyed and the right ureteral orifice was visualized with some stone dust bright und it. I cannulated the right ureteral orifice using the tip of a 5-Ukrainian ureteral access catheter and prepared to perform a retrograde pyelography study, but the fluoroscopic equipment fail to actua te. As a result, we had to back out the stationary fluoroscopic equipment and bring in the mobile C- arm, and in the process, I removed the cystoscope and instead perform direct vision ureteroscopy via the urethra into his bladder and into the right ureteral orifice, where I noted a significant degree of Steinstrasse that essentially impacted to a slight degree at a point within the distal intramural right ureter about 2 cm proximal to the right ureteral orifice. There, a slight degree of ureteral t rauma was indeed noted. As a result, I passed a Sensor wire under direct vision via the semi-rigid u reteroscope and beyond the stone obstruction up the ureter ultimately into the collecting system, and by this time, fluoroscopic equipment had arrived, and I was able to perform spot fluoroscopic screwdown operator y confirming the wire coil within the putative calyces and renal pelvis of the right kidney. I then left the wire in place removing the ureteroscope before again passing the ureteroscope back into his bladder via his urethra and into the distal ureter where at this point, I utilized a 1.9-Ukrainian 0 tip Nitinol basket to grasp and remove some of the larger stone fragments. Once all the large fragments had been removed, requiring multiple passes in and out of the ureteral orifice with the ureteroscope , there was still a lot of smaller dust fragments present. As a result, I removed the semi-rigid ure teroscope and instead used a dual-lumen catheter to pass into the distal ureter and this time I perfo rmed a retrograde pyelogram study via the second lumen of the dual-lumen catheter with the dual-lumen catheter passed over the indwelling Sensor safety wire. Right retrograde pyelography: Using a 70:30 mixture of Omnipaque and saline, contrast was injected v ia the second lumen of the dual-lumen catheter and did propagate up the distal into the mid and proxi mal ureter before entering the renal pelvis and calyces, which did indicate the coiling of the Sensor wire within the upper pole calyx. As a result, I passed a Bentson wire via the second lumen of the dual-lumen catheter, also coiling it within the renal pelvis and calices. I removed the dual-lumen c atheter and passed an 11 x 13-Ukrainian ureteral access sheath just into the distal ureter and removed t marcel Ayersson guidewire in order to allow a lot of the stone dust to pass. A lot of the dust did pass j ust with placement of the ureteral access catheter, but in order to investigate the remainder of his collecting system to ensure no residual significant size calculi, I then utilized the optical flexibl e ureteroscope, because the digital equipment was down, and I was able to navigate the ureteroscope u p the ureter beyond some residual small dust and into the collecting system. I surveyed each of the calices of the kidney from the upper pole down into the mid pole calices and the lower pole calyx. N o significant stone fragments were noted in any of the calyces. I then injected contrast via the ure teroscope and delineated each of the calices and ensured I had seen into each of the calices appropri ately. Once confirmed, and that no additional significant stones were present in the kidney, I then retracted the ureteroscope down the ureter, washing any stone dust out of the ureteral access sheath in the process. Essentially, I turned off the pressurized fluid instillation and as the kidney decom pressed, it pushed the stone dust past the scope and down and out the ureteral access sheath. I ensu red to retract the ureteral access sheath as I was removing the scope to ensure essentially most if n ot all of the stone dust was evacuated out of the distal ureter. Once this was done, the ureteral ac cess sheath was removed, and I then back-loaded the cystoscope over the indwelling Sensor safety wire . I then passed a 6-Ukrainian x 26 cm double-J ureteral stent over the Sensor wire coiling it within th e renal pelvis of the right kidney with an additional coil formed cystoscopically within the bladder. His bladder was then decompressed of fluid and urine, and I ensured to remove as many visible calcu li fragments as possible while decompressing his bladder. The scope was then removed and he was take n out of the lithotomy position. He was then awakened from general anesthesia before being transferr ed to a stretcher. He was then transferred to the recovery room in good condition. Complications: None. Discharge Disposition: We will leave his ureteral stent for about 2 to 3 weeks before he will requir e cystoscopy and right ureteral stent extraction in the office. Again, we will plan to do this no mo re than 3 weeks, preferably in about 2 weeks to decrease his length of time with stent discomfort. W e are leaving it for this length of time because of the slight trauma to the distal ureter where the stone calculi fragments did impact to pre vent passage causing Steinstrasse. NATALIA/LAURE Voice ID: [id number] Report ID: [id number]
== END | disposition home or self-care (01) ==
LOC: OR 11:00
PROVIDERS: ATTEND Urology
PROC: 0T768DZ Dilation of Right Ureter with Intraluminal Device, Via Natural or Artificial Opening Endoscopic (ICD-10-PCS; 2024-04-10)
PROC: 0TC68ZZ Extirpation of Matter from Right Ureter, Via Natural or Artificial Opening Endoscopic (ICD-10-PCS; principal; 2024-04-10 14:45)
DX: N13.2 Hydronephrosis with renal and ureteral calculous obstruction (principal); R10.9 Unspecified abdominal pain
CPT/HCPCS: 52352; 52332; 88300; 82360; 74018; 74450; 51610; J2704; J2001; J2250; J3010; J2405; J7120; J0696